=== PATIENT | male | born 1945 | race Caucasian/White ===

== ENCOUNTER 2016-08-10 17:36 | Inpatient (IN) | payer MEDICARE ==
[2016-08-10] MEDS ORDERED: ASPIRIN 81 MG CHEW PO STA (18:12)
--- NOTE | 2016-08-10 18:16 | ED ---
SOB HPI - General Chief Complaint: Shortness of Breath Stated Complaint: fatigue Time Seen by Provider: 08/10/16 18:00 Source: patient, RN notes reviewed Mode of arrival: wheelchair Limitations: no limitations - History of Present Illness Initial Comments: Is a 71-year-old male with a prior history of a three-way coronary artery bypass in 1997 also a stent the same year who states he had an episode about one week ago of some dyspnea on exertion which resolved but then over the past 2 days she's had exertional dyspnea and some mild anterior lower chest pressure when he exerts himself. He has no prior history of COPD or emphysema although he did quit smoking at the age of 35. He currently is asymptomatic. He denies any fevers chills sweats nausea vomiting cough or phlegm production. Patient does work as a car hauler but has not been on any long trips in the past couple months. He denies any calf pain. MD Complaint: shortness of breath, chest pain - Related Data Home Medications Medication Instructions Recorded Confirmed Aspirin 81 mg PO DAILY 03/05/14 08/10/16 Lisinopril-Hctz 20-25 mg 0.5 tab PO DAILY 03/05/14 08/10/16 [Zestoretic 20-25] Metoprolol Tartrate [Lopressor] 50 mg PO DAILY 03/05/14 08/10/16 Multivitamin [Men's Multi-Vitamin] 1 tab PO DAILY 03/05/14 08/10/16 Furosemide [Lasix] 40 mg PO DAILY PRN 03/06/14 08/10/16 Meloxicam [Mobic] 7.5 mg PO DAILY 08/10/16 08/10/16 Simvastatin [Zocor] 20 mg PO DAILY 08/10/16 08/10/16 Previous Rx's Medication Instructions Recorded Clopidogrel [Plavix] 75 mg PO DAILY #90 tab 12/26/15 Allergies Allergy/AdvReac Type Severity Reaction Status Date / Time No Known Allergies Allergy Verified 08/10/16 18:35 Review of Systems ROS Statement: Those systems with pertinent positive or pertinent negative responses have been documented in the HPI. ROS Other: All systems not noted in ROS Statement are negative. 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 History of Any Multi-Drug Resistant Organisms: MRSA Date of last positivie culture/infection: 2011 MDRO Source:: back Past Surgical History: Coronary Bypass/CABG, Heart Catheterization, Heart Catheterization With Stent, Hernia Repair Additional Past Surgical History / Comment(s): 12/25/15 PTCA with stent to OM- 1. Other surgical hx: CABG 1997 triple vessel, cardiac caths, 03/07/14 cardiac cath with stent. colonoscopy, L wrist ganglion cystectomy, umbilical hernia repair. Past Anesthesia/Blood Transfusion Reactions: No Reported Reaction Date of Last Stent Placement:: 12/25/15 Past Psychological History: No Psychological Hx Reported Additional Psychological History / Comment(s): Pt resides with his spouse. 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 He uses no assistive devices. Smoking Status: Former smoker Past Alcohol Use History: None Reported Additional Past Alcohol Use History / Comment(s): STARTED SMOKING AT AGE 17- QUIT IN 1973 SMOKED 1PPD Past Drug Use History: None Reported - Past Family History Father Family Medical History: Cancer Additional Family Medical History / Comment(s): Father of cancer which started in his leg and went to his lungs. He was 82 yrs old. Mother Family Medical History: Musculoskeletal Disorder, Neurologic Disorder Additional Family Medical History / Comment(s): Mother had MS which pt states was cured. She also suffered from migraines. General Exam - General Exam Comments Initial Comments: This is a well-developed well-nourished awake alert oriented x 3 male Limitations: no limitations General appearance: alert, in no apparent distress Head exam: Present: atraumatic, normocephalic, normal inspection Eye exam: Present: normal appearance, PERRL, EOMI. Absent: scleral icterus, conjunctival injection, periorbital swelling ENT exam: Present: normal exam, mucous membranes moist Neck exam: Present: normal inspection. Absent: tenderness, meningismus, lymphadenopathy Respiratory exam: Present: normal lung sounds bilaterally. Absent: respiratory distress, wheezes, rales, rhonchi, stridor Cardiovascular Exam: Present: regular rate, normal rhythm, normal heart sounds. Absent: systolic murmur, diastolic murmur, rubs, gallop, clicks GI/Abdominal exam: Present: soft, normal bowel sounds, other (Obese abdomen). Absent: distended, tenderness, guarding, rebound, rigid Rectal exam: Present: heme (+) stool Extremities exam: Present: normal inspection, full ROM, normal capillary refill , pedal edema (Edema on the left compared to the right some stasis changes noted ). Absent: tenderness, joint swelling, calf tenderness Back exam: Present: normal inspection Neurological exam: Present: alert, oriented X3, CN II-XII intact Psychiatric exam: Present: normal affect, normal mood Skin exam: Present: warm, dry, intact, normal color. Absent: rash Course Vital Signs 08/10/16 08/10/16 08/10/16 18:00 19:08 20:52 Temperature 98.4 F Pulse Rate 71 80 77 Respiratory 20 20 18 Rate Blood Pressure 128/83 131/78 163/76 O2 Sat by Pulse 94 L 96 95 Oximetry - Reevaluation(s) Reevaluation #1: 08/10/16 20:14 Patient does state that he's been having some episodes of bright red blood and dark red blood in the last day or so per rectum. Really no abdominal pain to speak of some vague discomfort on the left side he states. I did perform a rectal exam and did demonstrate burgundy-colored stool no definite hemorrhoidal etiology Medical Decision Making - Medical Decision Making I did discuss findings with patient and with the hospitalist. Visual be admitted with cardiology and GI consultation. Patient currently is asymptomatic. - Lab Data Result diagrams: 08/10/16 18:20 08/10/16 18:20 Lab Results 08/10/16 08/10/16 08/10/16 Range/Units 18:20 18:20 18:20 WBC 9.2 (3.8-10.6) k/uL RBC 5.07 (4.30-5.90) m/uL Hgb 15.0 (13.0-17.5) gm/dL Hct 45.6 (39.0-53.0) % MCV 89.9 (80.0-100.0) fL MCH 29.5 (25.0-35.0) pg MCHC 32.8 (31.0-37.0) g/dL RDW 13.8 (11.5-15.5) % Plt Count 206 (150-450) k/uL Neutrophils % 74 % Lymphocytes % 14 % Monocytes % 6 % Eosinophils % 2 % Basophils % 1 % Neutrophils # 6.8 (1.3-7.7) k/uL Lymphocytes # 1.3 (1.0-4.8) k/uL Monocytes # 0.6 (0-1.0) k/uL Eosinophils # 0.2 (0-0.7) k/uL Basophils # 0.0 (0-0.2) k/uL PT (9.0-12.0) sec INR (<1.1) APTT (22.0-30.0) sec D-Dimer (<0.60) mg/L FEU Sodium 142 (137-145) mmol/L Potassium 4.0 (3.5-5.1) mmol/L Chloride 106 (98-107) mmol/L Carbon Dioxide 24 (22-30) mmol/L Anion Gap 12 mmol/L BUN 22 H (9-20) mg/dL Creatinine 0.90 (0.66-1.25) mg/dL Est GFR (MDRD) Af Amer >60 (>60 ml/min/1.73 sqM) Est GFR (MDRD) Non-Af >60 (>60 ml/min/1.73 sqM) Glucose 132 H (74-99) mg/dL Calcium 9.1 (8.4-10.2) mg/dL Magnesium 2.0 (1.6-2.3) mg/dL Total Bilirubin 0.4 (0.2-1.3) mg/dL AST 30 (17-59) U/L ALT 33 (21-72) U/L Alkaline Phosphatase 90 (38-126) U/L Total Creatine Kinase 174 H (55-170) U/L CK-MB (CK-2) 2.0 (0.0-2.4) ng/mL CK-MB (CK-2) Rel Index 1.1 Troponin I <0.012 (0.000-0.034) ng/mL NT-Pro-B Natriuret Pep pg/mL Total Protein 6.8 (6.3-8.2) g/dL Albumin 3.8 (3.5-5.0) g/dL Stool Occult Blood (Negative) 08/10/16 08/10/16 08/10/16 Range/Units 18:20 18:20 20:12 WBC (3.8-10.6) k/uL RBC (4.30-5.90) m/uL Hgb (13.0-17.5) gm/dL Hct (39.0-53.0) % MCV (80.0-100.0) fL MCH (25.0-35.0) pg MCHC (31.0-37.0) g/dL RDW (11.5-15.5) % Plt Count (150-450) k/uL Neutrophils % % Lymphocytes % % Monocytes % % Eosinophils % % Basophils % % Neutrophils # (1.3-7.7) k/uL Lymphocytes # (1.0-4.8) k/uL Monocytes # (0-1.0) k/uL Eosinophils # (0-0.7) k/uL Basophils # (0-0.2) k/uL PT 10.9 (9.0-12.0) sec INR 1.1 (<1.1) APTT 21.5 L (22.0-30.0) sec D-Dimer 0.53 (<0.60) mg/L FEU Sodium (137-145) mmol/L Potassium (3.5-5.1) mmol/L Chloride (98-107) mmol/L Carbon Dioxide (22-30) mmol/L Anion Gap mmol/L BUN (9-20) mg/dL Creatinine (0.66-1.25) mg/dL Est GFR (MDRD) Af Amer (>60 ml/min/1.73 sqM) Est GFR (MDRD) Non-Af (>60 ml/min/1.73 sqM) Glucose (74-99) mg/dL Calcium (8.4-10.2) mg/dL Magnesium (1.6-2.3) mg/dL Total Bilirubin (0.2-1.3) mg/dL AST (17-59) U/L ALT (21-72) U/L Alkaline Phosphatase (38-126) U/L Total Creatine Kinase (55-170) U/L CK-MB (CK-2) (0.0-2.4) ng/mL CK-MB (CK-2) Rel Index Troponin I (0.000-0.034) ng/mL NT-Pro-B Natriuret Pep 24 pg/mL Total Protein (6.3-8.2) g/dL Albumin (3.5-5.0) g/dL Stool Occult Blood Positive (Negative) - EKG Data -: EKG Interpreted by [facility] EKG shows normal: sinus rhythm (Sinus rhythm with a right bundle-branch block old inferior changes rate was 86. Interval 190 QRS duration 128 daily since QTC of 420/[address]-t wave changes) - Radiology Data Radiology results: report reviewed (Imaging was reviewed no acute findings), image reviewed Disposition Clinical Impression: Angina of effort, GI bleed Disposition: ADMITTED IP TO THIS [facility] Condition: Stable
[2016-08-10 18:37] LABS: Basophils % (A) 1 %; CH 29.4; CHCM 32.9; Eosinophils # (A) 0.2 k/uL (0-0.7); Eosinophils % (A) 2 %; HCT 45.6 % (39.0-53.0); HDW 2.43; Luc # (Auto) 0.27; Luc % (Auto) 3; Lymphocytes # (A) 1.3 k/uL (1.0-4.8); Lymphocytes % (A) 14 %; MCH 29.5 pg (25.0-35.0); MCHC 32.8 g/dL (31.0-37.0); MCV 89.9 fL (80.0-100.0); Mean Platelet Volume 8.1; Monocytes # (A) 0.6 k/uL (0-1.0); Monocytes % (A) 6 %; Neutrophils # (A) 6.8 k/uL (1.3-7.7); Neutrophils % (A) 74 %; RBC 5.07 m/uL (4.30-5.90); RDW 13.8 % (11.5-15.5); WBC 9.2 k/uL (3.8-10.6); WBC (Perox) 9.11
[2016-08-10 18:46] LABS: ALT 33 U/L (21-72); AST 30 U/L (17-59); Alkaline Phosphatase 90 U/L (38-126); Anion Gap 12 mmol/L; Blood Urea Nitrogen 22 mg/dL (9-20); Calcium 9.1 mg/dL (8.4-10.2); Carbon Dioxide 24 mmol/L (22-30); Chloride 106 mmol/L (98-107); Glucose 132 mg/dL (74-99); Non-African American GFR(MDRD) >60 (>60 ml/min/1.73 sqM); Sodium 142 mmol/L (137-145); Total Bilirubin 0.4 mg/dL (0.2-1.3); Total Protein 6.8 g/dL (6.3-8.2)
[2016-08-10 18:59] LABS: Creatine Kinase 174 U/L (55-170)
[2016-08-10 19:11] LABS: INR 1.1 (<1.1); Prothrombin Time 10.9 sec (9.0-12.0); Troponin I <0.012 ng/mL (0.000-0.034)
[2016-08-10 19:26] LABS: Partial Thromboplastin Time 21.5 sec (22.0-30.0)
--- NOTE | 2016-08-10 20:00 | XR ---
EXAMINATION TYPE: XR chest 2V DATE OF EXAM: 08/10/2016 7:18 PM COMPARISON: July 11, 2014 HISTORY: Chest pressure TECHNIQUE: Frontal and lateral views of the chest are obtained. FINDINGS: There are sternal sutures and mediastinal clips and EKG leads. There is no focal air space opacity, pleural effusion, or pneumothorax seen. The cardiac silhouette size is within normal limits. The osseous structures are intact. IMPRESSION: No acute cardiopulmonary process.
[2016-08-10] MEDS ORDERED: NITROGLYCERIN SL TABS 0.4 MG TAB SUBLINGUAL PRN (21:01)
[2016-08-10] MEDS ORDERED: FUROSEMIDE 40 MG TAB PO PRN (21:08)
[2016-08-10] MEDS: SODIUM CHLORIDE 0.9% 1,000 ML IV SCH (21:52)
[2016-08-10] MEDS: NITROGLYCERIN OINT 1 INCH/GM PACKET TOPICAL SCH ×2 (21:57→21:58)
[2016-08-11 01:00] LABS: CHCM 32.7; HCT 42.4 % (39.0-53.0); HDW 2.48; HGB 14.4 gm/dL (13.0-17.5); MCH 30.2 pg (25.0-35.0); MCV 88.9 fL (80.0-100.0); Mean Platelet Volume 8.1; RBC 4.77 m/uL (4.30-5.90); RDW 13.4 % (11.5-15.5); WBC 7.6 k/uL (3.8-10.6)
[2016-08-11 01:20] LABS: Creatine Kinase 152 U/L (55-170)
[2016-08-11 01:33] LABS: Creatine Kinase MB 1.9 ng/mL (0.0-2.4); Troponin I <0.012 ng/mL (0.000-0.034)
[2016-08-11 06:08] LABS: Cholesterol 181 mg/dL (<200); HDL Cholesterol 35 mg/dL (40-60); Triglycerides 153 mg/dL (<150)
[2016-08-11 06:32] LABS: Creatine Kinase 135 U/L (55-170)
[2016-08-11 06:44] LABS: Creatine Kinase MB 1.5 ng/mL (0.0-2.4); Troponin I <0.012 ng/mL (0.000-0.034)
[2016-08-11] MEDS: SODIUM CHLORIDE 0.9% 1,000 ML IV SCH ×3 (07:42→20:27)
[2016-08-11] MEDS ORDERED: ATORVASTATIN 10 MG TAB PO SCH (09:00)
[2016-08-11] MEDS ORDERED: LISINOPRIL-HCTZ 20-25 MG 1 EACH TAB PO SCH (09:00)
[2016-08-11] MEDS: PANTOPRAZOLE 40 MG/10 ML VIAL IVP SCH ×2 (09:09→20:27)
[2016-08-11] MEDS: METOPROLOL TARTRATE 50 MG TAB PO SCH (09:10)
[2016-08-11] MEDS: NITROGLYCERIN OINT 1 INCH/GM PACKET TOPICAL SCH ×3 (13:33→20:31)
--- NOTE | 2016-08-11 13:36 | P.HPIM ---
History of Present Illness H&P Date: 08/11/16 Chief Complaint: Shortness of breath and chest pressure This is a 71-year-old gentleman with the triple-vessel disease thereafter undergoing a PCI to the one in January 2016 comes in to the hospital with complaints of progressive worsening of exertional dyspnea and chest pressure across his midsternal region. Patient denies the pressure being nonradiating it is exacerbated with activity no alleviating factors are reported. Patient states that over the last few days he has noted some dark to bright red blood on having bowel movements. Denies having any recent nausea vomiting or pain relief on defecation. Patient states does state that he has had epigastric pain over the last few days. In the emergency room patient's EKG showed a right bundle branch block with no significant change from appropriate prior EKG. Patient's cardiac enzymes subsequently were negative. However patient had another large bowel movement this a.m. hence was triaged to the stepdown ICU unit. Patient had a large bowel movement this a.m. that was bright red blood. Off note Patient states that he has been lightheaded however no significant dizziness chest pain nausea vomiting urinary urgency or frequency reported at this time. Patient has been on aspirin and Plavix for his recent PCI. Patient's last colonoscopy was 8 years ago was apparently told he has diverticulosis Does not state to take any NSAIDs in addition to the aspirin and Plavix. 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 History of Any Multi-Drug Resistant Organisms: MRSA Date of last positivie culture/infection: 2011 MDRO Source:: back Past Surgical History: Coronary Bypass/CABG, Heart Catheterization, Heart Catheterization With Stent, Hernia Repair Additional Past Surgical History / Comment(s): 12/25/15 PTCA with stent to OM-1 , CABG 1997 triple vessel, cardiac caths, 03/07/14 cardiac cath with stent. colonoscopy, L wrist ganglion cystectomy, umbilical hernia repair. Past Anesthesia/Blood Transfusion Reactions: No Reported Reaction Date of Last Stent Placement:: 12/25/15 Past Psychological History: No Psychological Hx Reported Additional Psychological History / Comment(s): Pt resides with his spouse of 50 yrs. 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 He uses no assistive devices. Smoking Status: Former smoker Past Alcohol Use History: None Reported Additional Past Alcohol Use History / Comment(s): STARTED SMOKING AT AGE 17- QUIT IN 1974 SMOKED 1PPD Past Drug Use History: None Reported - Past Family History Father Family Medical History: Cancer Additional Family Medical History / Comment(s): Father of cancer which started in his leg and went to his lungs. He was 82 yrs old. Mother Family Medical History: Musculoskeletal Disorder, Neurologic Disorder Additional Family Medical History / Comment(s): Mother had MS which pt states was cured. She also suffered from migraines. Medications and Allergies Home Medications Medication Instructions Recorded Confirmed Type Aspirin 81 mg PO DAILY 03/05/14 08/10/16 History Lisinopril-Hctz 20-25 mg 0.5 tab PO DAILY 03/05/14 08/10/16 History [Zestoretic 20-25] Metoprolol Tartrate [Lopressor] 50 mg PO DAILY 03/05/14 08/10/16 History Multivitamin [Men's Multi-Vitamin] 1 tab PO DAILY 03/05/14 08/10/16 History Furosemide [Lasix] 40 mg PO DAILY PRN 03/06/14 08/10/16 History Meloxicam [Mobic] 7.5 mg PO DAILY 08/10/16 08/10/16 History Simvastatin [Zocor] 20 mg PO DAILY 08/10/16 08/10/16 History Allergies Allergy/AdvReac Type Severity Reaction Status Date / Time No Known Allergies Allergy Verified 08/10/16 18:35 Physical Exam Vitals: Vital Signs Temp Pulse Pulse Resp BP BP Pulse Ox 08/11/16 13:17 97.0 F L 50 L 18 115/77 95 08/11/16 12:46 96 F L 60 20 127/74 96 08/11/16 11:41 97.9 F 68 16 120/59 96 08/11/16 09:47 16 08/11/16 09:38 66 16 148/78 08/10/16 21:54 96.8 F L 70 18 138/81 97 Physical exam Gen. appearance oriented 3 in no distress Neck is supple no JVD Lungs good air entry clear to auscultation no rhonchi or wheezing Heart S1-S2 heard regular rate and rhythm no murmurs appreciated Abdomen some epigastric pain appreciated bowel sounds are intact no organomegaly Neurologically cranial nerves II-12 grossly intact no focal motor or sensory deficits noted Skin no abnormalities appreciated Results CBC & Chem 7: 08/11/16 00:42 08/10/16 18:20 Labs: Abnormal Lab Results - Last 24 Hours (Table) 08/11/16 Range/Units 05:20 Triglycerides 153 H (<150) mg/dL LDL Cholesterol, Calc 115 H (0-99) mg/dL HDL Cholesterol 35 L (40-60) mg/dL Thrombosis Risk Factor Assmnt - Choose All That Apply Any of the Below Risk Factors Present?: Yes Each Factor Represents 1 point: Obesity (BMI >25) Other Risk Factors: Yes Each Risk Factor Represents 2 Points: Age 61-74 years Other congenital or acquired thrombophilia - If yes, enter type in comment: No Thrombosis Risk Factor Assessment Total Risk Factor Score: 3 Thrombosis Risk Factor Assessment Level: Moderate Risk Assessment and Plan Plan: Atypical chest pain ACS is ruled out #2 GI bleed appears to be acute in nature and upper in a patient was taken dual antiplatelet therapy #3 CAD with a recent PCI to the OM-1 in a patient with triple-vessel bypass #4 history of hypertension #5 dyslipidemia #6 obesity #7 remote history of tobacco use Plan Cardiology consultation is obtained. Patient's antiplatelet agents are held at this time Repeat hemoglobin every 6 hours Patient does not appear to have any active chest pain. Echocardiogram is done will review results A GI consultation will be obtained patient would benefit from a panendoscopy to rule out active signs of bleeding patient will likely need to be on dual antiplatelet therapy for at least another 6 months once the risk factors are delineated. Continue ongoing care. Continue telemetry monitoring EKG was reviewed.
[2016-08-11 16:36] LABS: Glucose,Whole Blood 88 mg/dL (75-99)
[2016-08-11 20:17] LABS: Basophils # (A) 0.1 k/uL (0-0.2); Basophils % (A) 1 %; CH 28.7; CHCM 32.1; Eosinophils # (A) 0.2 k/uL (0-0.7); Eosinophils % (A) 2 %; HDW 2.49; HGB 13.8 gm/dL (13.0-17.5); Luc % (Auto) 4; Lymphocytes # (A) 1.2 k/uL (1.0-4.8); Lymphocytes % (A) 14 %; MCH 29.6 pg (25.0-35.0); MCHC 32.9 g/dL (31.0-37.0); MCV 89.9 fL (80.0-100.0); Mean Platelet Volume 7.8; Monocytes # (A) 0.5 k/uL (0-1.0); Monocytes % (A) 6 %; Neutrophils % (A) 73 %; RBC 4.67 m/uL (4.30-5.90); RDW 13.4 % (11.5-15.5); WBC 8.2 k/uL (3.8-10.6); WBC (Perox) 8.34
[2016-08-11 20:57] LABS: Glucose,Whole Blood 118 mg/dL (75-99)
[2016-08-12] MEDS: NITROGLYCERIN OINT 1 INCH/GM PACKET TOPICAL SCH ×5 (03:06→21:29)
[2016-08-12] MEDS: SODIUM CHLORIDE 0.9% 1,000 ML IV SCH ×3 (04:01→11:40)
[2016-08-12 04:05] LABS: Basophils # (A) 0.1 k/uL (0-0.2); Basophils % (A) 1 %; CH 29.5; CHCM 32.3; Eosinophils # (A) 0.2 k/uL (0-0.7); Eosinophils % (A) 3 %; HDW 2.42; HGB 13.2 gm/dL (13.0-17.5); Luc # (Auto) 0.28; Luc % (Auto) 4; Lymphocytes # (A) 1.3 k/uL (1.0-4.8); Lymphocytes % (A) 15 %; MCH 29.5 pg (25.0-35.0); MCHC 32.2 g/dL (31.0-37.0); MCV 91.6 fL (80.0-100.0); Mean Platelet Volume 8.3; Monocytes # (A) 0.4 k/uL (0-1.0); Monocytes % (A) 5 %; Neutrophils # (A) 5.9 k/uL (1.3-7.7); Neutrophils % (A) 73 %; RBC 4.48 m/uL (4.30-5.90); RDW 13.8 % (11.5-15.5); WBC 8.2 k/uL (3.8-10.6); WBC (Perox) 8.45
[2016-08-12 04:26] LABS: ALT 36 U/L (21-72); AST 24 U/L (17-59); Alkaline Phosphatase 74 U/L (38-126); Anion Gap 8 mmol/L; Blood Urea Nitrogen 15 mg/dL (9-20); Calcium 8.3 mg/dL (8.4-10.2); Carbon Dioxide 25 mmol/L (22-30); Chloride 108 mmol/L (98-107); Glucose 98 mg/dL (74-99); Non-African American GFR(MDRD) >60 (>60 ml/min/1.73 sqM); Potassium 3.9 mmol/L (3.5-5.1); Sodium 141 mmol/L (137-145); Total Bilirubin 0.6 mg/dL (0.2-1.3); Total Protein 5.7 g/dL (6.3-8.2)
[2016-08-12 05:41] LABS: Glucose,Whole Blood 113 mg/dL (75-99)
--- NOTE | 2016-08-12 08:30 | CONS ---
DATE OF CONSULTATION: Bharat Roldan is a 71-year-old gentleman who sees Dr. Dunaway in the outpatient setting. He has history of CAD, hypertension, hyperlipidemia, and in November he underwent stenting of an obtuse marginal branch of circumflex. He has a prior history of aortocoronary bypass surgery that was performed in the past with KAUR to LAD and a vein graft to the obtuse marginal and also diagonal branch. Diagonal branch was highly diseased and vein graft to the obtuse marginal was known to be occluded. ( ) performed stenting of the [place] obtuse marginal which was the first obtuse marginal with a drug-eluting stent. Patient is fairly active. He has had injury as a child and he is blind in his left eye. He is a reasonably active person. He came in because about 4 days ago he had some pressure across the chest while he was doing some yard work. He felt concerned and came in, but 2 days prior to that, he has been noticing some blood in his stool. After arrival to the hospital, he has had matthew middle and colored blood in the stool with a large bowel movement with clots. He dropped his hemoglobin nearly 1.8 grams. He is hemodynamically stable, resting comfortably. Appropriately, his aspirin and Plavix were both held. He is hemodynamically stable, resting comfortably. Denies any chest pain at the time of my evaluation. PAST MEDICAL HISTORY: 1. CAD with prior bypass surgery and PCI in December 2015 more than 6 months ago. 2. Hypertension. 3. Hyperlipidemia. 4. Obstructive sleep apnea syndrome, wears a BiPAP. 5. Patient is legally blind on his left eye. 6. He is status post hernia repair and bypass surgery in the past. Also has had some umbilical hernia repair as well. ALLERGIES: NONE. Medications at home included aspirin 81 mg daily, Plavix 75 mg daily, simvastatin 20 mg daily, lisinopril hydrochlorothiazide 20/25 one tablet daily, Lopressor 50 mg daily, Lasix 40 mg daily which he was taking on a p.r.n. basis. On examination, blood pressure is 118/70, pulse rate is 68 per minute, regular. HEENT: Unremarkable. Fundus was not examined by me. Neck is supple. There is no evidence of any significant JVD. Heart exam reveals S1 and S2 heard normally. No significant murmurs are audible. Lungs reveal diminished air entry. Abdomen is soft. There is no tenderness. Lower extremities reveal diminished pulses with evidence of some pigmentations. There is trace edema bilaterally. Central nervous system grossly no focal deficits. EKG revealed sinus mechanism with evidence of right bundle branch block pattern and repolarization abnormality, evidence of old inferior MA. LABORATORY DATA: Suggests that there is no elevation of troponin. IMPRESSION: 1. Chest pain syndrome, cannot exclude angina without evidence of any myocardial injury. 2. Gastrointestinal bleeding, lower gastrointestinal with bloody stool and drop in hemoglobin of 1.8 grams. 3. Hypertension. 4. Hyperlipidemia. 5. History of prior bypass surgery and PCI of circumflex performed in December 2015. RECOMMENDATIONS: I agree with stopping both aspirin and Plavix under the current circumstances. I explained this to the patient. However, I am concerned about his episode of chest pain. Fortunately the chest pain has not recurred. He has no troponin elevation. We will treat him medically in this regard and he will benefit from a full upper and lower endoscopy. I am recommending that we continue his beta jusuts in the form of metoprolol tartrate. Will also place him on nitro paste for now and Imdur eventually and increase the atorvastatin to 40 mg daily. He has no angina and based on clinical course, I will make further recommendations. We will await input from GI and possible endoscopy. Thank you very much for the consult.
[2016-08-12] MEDS: PANTOPRAZOLE 40 MG/10 ML VIAL IVP SCH ×2 (09:55→21:12)
[2016-08-12] MEDS: ATORVASTATIN 40 MG TAB PO SCH (09:55)
[2016-08-12] MEDS: METOPROLOL TARTRATE 50 MG TAB PO SCH (09:55)
[2016-08-12 10:59] LABS: CH 29.3; CHCM 32.2; HCT 40.5 % (39.0-53.0); HDW 2.44; MCH 29.3 pg (25.0-35.0); MCHC 32.1 g/dL (31.0-37.0); MCV 91.5 fL (80.0-100.0); Mean Platelet Volume 8.1; RBC 4.42 m/uL (4.30-5.90); RDW 13.6 % (11.5-15.5); WBC 6.3 k/uL (3.8-10.6)
[2016-08-12 11:42] LABS: Glucose,Whole Blood 104 mg/dL (75-99)
[2016-08-12 16:21] LABS: CH 29.6; CHCM 33.1; HCT 39.1 % (39.0-53.0); HDW 2.55; HGB 13.2 gm/dL (13.0-17.5); MCH 30.3 pg (25.0-35.0); MCHC 33.8 g/dL (31.0-37.0); MCV 89.7 fL (80.0-100.0); Mean Platelet Volume 8.2; RBC 4.35 m/uL (4.30-5.90); RDW 13.3 % (11.5-15.5); WBC 7.4 k/uL (3.8-10.6)
--- NOTE | 2016-08-12 16:35 | P.PN ---
Subjective This is a 71-year-old gentleman with the triple-vessel disease thereafter undergoing a PCI to the one in January 2016 comes in to the hospital with complaints of progressive worsening of exertional dyspnea and chest pressure across his midsternal region. Patient denies the pressure being nonradiating it is exacerbated with activity no alleviating factors are reported. Patient states that over the last few days he has noted some dark to bright red blood on having bowel movements. Denies having any recent nausea vomiting or pain relief on defecation. Patient states does state that he has had epigastric pain over the last few days. In the emergency room patient's EKG showed a right bundle branch block with no significant change from appropriate prior EKG. Patient's cardiac enzymes subsequently were negative. However patient had another large bowel movement this a.m. hence was triaged to the stepdown ICU unit. Patient had a large bowel movement this a.m. that was bright red blood. Off note Patient states that he has been lightheaded however no significant dizziness chest pain nausea vomiting urinary urgency or frequency reported at this time. Patient has been on aspirin and Plavix for his recent PCI. Patient's last colonoscopy was 8 years ago was apparently told he has diverticulosis has been taking meloxicam for the last 3-4 weeks in addition to the aspirin and Plavix. 08/12/2016 States to be doing well. Has had one bowel movement with minimal blood in it or graft no fevers chills nausea vomiting diarrhea reported at this time. Objective - Vital Signs Vital signs: Vital Signs Temp 96.8 F L 08/12/16 16:02 Pulse 65 08/12/16 16:02 Resp 21 08/12/16 16:02 BP 149/70 08/12/16 16:02 Pulse Ox 97 08/12/16 16:02 Intake & Output 08/11/16 08/12/16 08/12/16 18:59 06:59 18:59 Intake Total 1850 200 Balance 1850 200 Weight 102.058 kg 124.1 kg Intake: IV 1250 200 Sodium Chloride 0.9% 1, 1250 200 000 ml @ 50 mls/hr IV . Q20H ALLEN Rx#:[id number] Oral 600 Other: Voiding Method Toilet Toilet # Voids 2 # Bowel Movements 2 1 - Exam Physical exam Gen. appearance oriented 3 in no distress Neck is supple no JVD Lungs good air entry clear to auscultation no rhonchi or wheezing Heart S1-S2 heard regular rate and rhythm no murmurs appreciated Abdomen is soft nontender no organomegaly bowel sounds are intact Neurologically cranial nerves II-12 grossly intact no focal motor or sensory deficits noted Skin no abnormalities appreciated - Labs CBC & Chem 7: 08/12/16 15:44 08/12/16 03:47 Labs: Abnormal Lab Results - Last 24 Hours (Table) 08/11/16 08/12/16 08/12/16 Range/Units 20:55 03:47 05:40 Chloride 108 H (98-107) mmol/L POC Glucose (mg/dL) 118 H 113 H (75-99) mg/dL Calcium 8.3 L (8.4-10.2) mg/dL Total Protein 5.7 L (6.3-8.2) g/dL Albumin 3.1 L (3.5-5.0) g/dL 08/12/16 Range/Units 11:40 Chloride (98-107) mmol/L POC Glucose (mg/dL) 104 H (75-99) mg/dL Calcium (8.4-10.2) mg/dL Total Protein (6.3-8.2) g/dL Albumin (3.5-5.0) g/dL Assessment and Plan Plan: Atypical chest pain ACS is ruled out #2 GI bleed appears to be acute in nature and upper in a patient was taken dual antiplatelet therapy #3 CAD with a recent PCI to the OM-1 in a patient with triple-vessel bypass #4 history of hypertension #5 dyslipidemia #6 obesity #7 remote history of tobacco use Plan currently hold off on mobic, dual antiplatelet therapy as recommended by cardiology. Patient is to undergo a panendoscopy likely with the GI. Hemoglobin is stable Repeat hemoglobin will await recommendations from the type inspector after the endoscopy.
[2016-08-12 16:52] LABS: Glucose,Whole Blood 124 mg/dL (75-99)
[2016-08-12] MEDS ORDERED: PEG 3350-NA SULF,BICARB,CL/KCL 4,000 ML BOTTLE PO ONE (17:00)
--- NOTE | 2016-08-12 17:31 | CONS ---
DATE OF CONSULTATION: 08/12/2016 REASON FOR CONSULTATION: Acute GI bleed. HISTORY OF PRESENT ILLNESS: The patient is a 71-year-old pleasant white male who was admitted to the hospital with chest pain and shortness of breath. While in the emergency room he was complaining of black tarry stools for the last 2 to 3 days' duration. The patient says that he had a similar episode about 6 months ago and another episode 2 years ago but never mentioned it to his physician; however, while in the ER he apparently did have a large amount of black tarry stool followed by maroon-colored stool, and he had about 2 of these episodes yesterday also. Hence we are consulted for further evaluation. The patient on further questioning states that he has been having some epigastric right upper quadrant abdominal pain for the last 2 or 3 days' duration. He denies any heartburn, reports no dysphagia or odynophagia. He has a history of peptic ulcer disease about 40 years ago. His last colonoscopy was close to 7 or 8 years ago, and according to the patient it was within normal limits. This morning he had 2 episodes of black tarry stools, also. He has been taking meloxicam for the last 4 months' duration for degenerative joint disease. Past medical history is significant for: 1. Coronary artery disease, status post stent placement a year ago, on aspirin and Plavix. 2. History of hypertension. 3. Hypercholesterolemia. 4. Degenerative joint disease. MEDICATIONS AT HOME: 1. Zocor. 2. Multivitamin. 3. Lopressor. 4. Mobic. 5. Zestoretic. 6. Lasix. 7. Plavix. 8. Aspirin. PAST SURGICAL HISTORY: 1. CABG. 2. Cardiac catheterization with stent placements. 3. Umbilical hernia repair. 4. Ganglion cyst removal. SOCIAL HISTORY: Remote history of smoking. No alcohol use. FAMILY HISTORY: Father had some kind of cancer that spread to the lungs. Mother had colon cancer. REVIEW OF SYSTEMS: CARDIOPULMONARY: He denies any chest pain or shortness of breath. GENITOURINARY: No dysuria or hematuria. MUSCULOSKELETAL: Unremarkable. SKIN: Unremarkable. ENDOCRINE: Unremarkable. PSYCHIATRIC: Unremarkable. NEUROLOGY: Unremarkable. ENT/VISION: Unremarkable. CONSTITUTIONAL: No recent weight loss. No fever, chills or night sweats. On physical examination, he appears comfortable; no apparent distress. Vital signs are stable. Blood pressure is 130/86, pulse rate 67, temperature 96.4. HEENT EXAMINATION: Unremarkable. Conjunctivae pink. Sclerae anicteric. Oral cavity has no lesions. NECK: No JVD or lymph node enlargement. Chest was clear to auscultation. HEART: Regular rate and rhythm. ABDOMEN: Soft. Bowel sounds are positive. No organomegaly. Mild tenderness in the epigastric area. EXTREMITIES: No pedal edema. SKIN: No rashes. NEURO: Alert and oriented x3. No focal deficits. LABS DONE AT THE TIME OF ADMISSION TO THE HOSPITAL: Hemoglobin 13.2. Today it is 13.3. BUN and creatinine were 22 and 0.9, respectively. Rest of the labs are within normal limits. IMPRESSION: 1. Acute gastrointestinal bleed for the last 3 days' duration. Patient has been having intermittent black tarry stools and occasional maroon-colored stools for the last 3 days; however, his hemoglobin remains stable at 13.2 g/dL. He had a similar episode about 6 months ago and about 2 years ago, at which times no obvious workup was done, as patient never complained to his physician. At present he is hemodynamically stable, with some drop in his hemoglobin so far. He has been on meloxicam for the last 4 months, and hence possibility of peptic ulcer disease needs to be considered. Last colonoscopy, as mentioned above, was approximately 8 years ago and was normal. 2. History of coronary artery disease/stent placement, on aspirin and Plavix, at present on hold. RECOMMENDATIONS: At this time we will proceed with an EGD and a colonoscopy. I discussed with the patient risks, benefits and complications of the procedure, and he is agreeable to it. In the meantime, continue to hold the aspirin and Plavix, and we will follow the patient closely during his hospital stay. Thank you for this consultation.
[2016-08-12 21:05] LABS: Glucose,Whole Blood 82 mg/dL (75-99)
[2016-08-12 21:46] LABS: CH 29.5; CHCM 32.5; HCT 43.5 % (39.0-53.0); HDW 2.43; MCH 29.4 pg (25.0-35.0); MCHC 32.2 g/dL (31.0-37.0); MCV 91.1 fL (80.0-100.0); Mean Platelet Volume 8.2; RBC 4.78 m/uL (4.30-5.90); RDW 13.7 % (11.5-15.5); WBC 8.1 k/uL (3.8-10.6)
[2016-08-13 04:56] LABS: ALT 36 U/L (21-72); AST 27 U/L (17-59); Alkaline Phosphatase 89 U/L (38-126); Anion Gap 12 mmol/L; Blood Urea Nitrogen 11 mg/dL (9-20); Calcium 9.1 mg/dL (8.4-10.2); Carbon Dioxide 26 mmol/L (22-30); Chloride 105 mmol/L (98-107); Glucose 102 mg/dL (74-99); Non-African American GFR(MDRD) >60 (>60 ml/min/1.73 sqM); Potassium 4.1 mmol/L (3.5-5.1); Sodium 143 mmol/L (137-145); Total Bilirubin 0.7 mg/dL (0.2-1.3); Total Protein 6.7 g/dL (6.3-8.2)
[2016-08-13 05:02] LABS: Basophils % (A) 1 %; CH 29.7; CHCM 33.5; Eosinophils # (A) 0.2 k/uL (0-0.7); Eosinophils % (A) 2 %; HCT 42.4 % (39.0-53.0); HDW 2.53; HGB 14.1 gm/dL (13.0-17.5); Luc # (Auto) 0.33; Luc % (Auto) 4; Lymphocytes # (A) 1.3 k/uL (1.0-4.8); Lymphocytes % (A) 15 %; MCH 29.6 pg (25.0-35.0); MCHC 33.3 g/dL (31.0-37.0); MCV 88.9 fL (80.0-100.0); Monocytes # (A) 0.6 k/uL (0-1.0); Monocytes % (A) 7 %; Neutrophils # (A) 5.9 k/uL (1.3-7.7); Neutrophils % (A) 71 %; RBC 4.77 m/uL (4.30-5.90); RDW 13.3 % (11.5-15.5); WBC 8.3 k/uL (3.8-10.6); WBC (Perox) 8.95
[2016-08-13 06:15] LABS: Glucose,Whole Blood 99 mg/dL (75-99)
[2016-08-13] MEDS: METOPROLOL TARTRATE 50 MG TAB PO SCH (08:31)
[2016-08-13] MEDS: PANTOPRAZOLE 40 MG/10 ML VIAL IVP SCH ×2 (08:31→20:58)
[2016-08-13] MEDS: ATORVASTATIN 40 MG TAB PO SCH (08:31)
[2016-08-13] MEDS: SODIUM CHLORIDE 0.9% 1,000 ML IV SCH (08:32)
[2016-08-13 09:27] LABS: Basophils # (A) 0.1 k/uL (0-0.2); Basophils % (A) 1 %; CH 29.4; CHCM 32.9; Eosinophils # (A) 0.2 k/uL (0-0.7); Eosinophils % (A) 3 %; HCT 38.7 % (39.0-53.0); HDW 2.44; HGB 12.7 gm/dL (13.0-17.5); Luc # (Auto) 0.26; Luc % (Auto) 4; Lymphocytes % (A) 17 %; MCH 29.5 pg (25.0-35.0); MCHC 32.8 g/dL (31.0-37.0); MCV 89.9 fL (80.0-100.0); Mean Platelet Volume 8.1; Monocytes # (A) 0.4 k/uL (0-1.0); Monocytes % (A) 6 %; Neutrophils # (A) 4.3 k/uL (1.3-7.7); Neutrophils % (A) 70 %; RBC 4.31 m/uL (4.30-5.90); RDW 13.7 % (11.5-15.5); WBC 6.1 k/uL (3.8-10.6); WBC (Perox) 6.37
--- NOTE | 2016-08-13 10:06 | ECHOF ---
Referral Reason:Atypical chest pain, in a.m. MEASUREMENTS -------- HEIGHT: 170.2 cm WEIGHT: 102.1 kg BP: 138/81 IVSd: 1.9 cm (0.6 - 1.1) LVIDd: 3.0 cm (3.9 - 5.3) LVPWd: 2.1 cm (0.6 - 1.1) IVSs: 2.2 cm LVIDs: 2.0 cm LVPWs: 2.3 cm Ao Diam: 3.9 cm (2.0 - 3.7) AV Cusp: 3.0 cm (1.5 - 2.6) LA Diam: 3.9 cm (2.7 - 3.8) MV EXCURSION: 21.388 mm (> 18.000) MV EF SLOPE: 80 mm/s (70 - 150) EPSS: 1.9 cm MV E Sai: 0.69 m/s MV DecT: 181 ms MV A Sai: 0.80 m/s MV E/A Ratio: 0.87 RAP: 5.00 mmHg RVSP: 7.97 mmHg FINDINGS -------- Sinus rhythm. This was a technically difficult study with suboptimal views. There is severe concentric left ventricular hypertrophy. Overall left ventricular systolic function is normal with, an EF between 55 - 60 %. The right ventricle is normal in size and function. The left atrium is normal in size. The right atrium is normal in size. 1.5mg of Definity was utilized for enhancement of images The aortic valve is trileaflet, and appears structurally normal. No aortic stenosis or regurgitation. The mitral valve leaflets are mildly thickened. There is trace mitral regurgitation. Trace tricuspid regurgitation present. The right ventricular systolic pressure, as measured by Doppler, is 7.97mmHg. Pulmonic valve appears structurally normal. The aortic root size is normal. The pericardium is normal. CONCLUSIONS -------- 1. Sinus rhythm. 2. The mitral valve leaflets are mildly thickened. 3. There is trace mitral regurgitation. 4. Trace tricuspid regurgitation present. 5. The right ventricular systolic pressure, as measured by Doppler, is 7.97mmHg. 6. Pulmonic valve appears structurally normal. 7. The aortic root size is normal. 8. The pericardium is normal. 9. This was a technically difficult study with suboptimal views. 10. There is severe concentric left ventricular hypertrophy. 11. Overall left ventricular systolic function is normal with, an EF between 55 - 60 %. 12. The right ventricle is normal in size and function. 13. The left atrium is normal in size. 14. The right atrium is normal in size. 15. 1.5mg of Definity was utilized for enhancement of images 16. The aortic valve is trileaflet, and appears structurally normal. No aortic stenosis or regurgitation. AUTOMOTIVE DISMANTLER: Milagros Adam RDCS
[2016-08-13 11:38] LABS: Glucose,Whole Blood 99 mg/dL (75-99)
[2016-08-13] MEDS: NITROGLYCERIN OINT 1 INCH/GM PACKET TOPICAL SCH ×3 (11:41→23:48)
[2016-08-13] MEDS ORDERED: GLYCOPYRROLATE 0.2 MG/ML 2 ML VIAL ONE (13:03)
[2016-08-13] MEDS ORDERED: LIDOCAINE 1% INJ 10MG/ML (20 ML MDV) ONE (13:03)
[2016-08-13] MEDS ORDERED: KETAMINE 10 MG/ML 20 ML VIAL ONE (13:03)
[2016-08-13] MEDS ORDERED: PROPOFOL 10 MG/ML 20 ML VIAL IV ONE (13:03)
[2016-08-13] MEDS ORDERED: IV FLUID CONTINUATION 800 ML IV ONE (13:05)
--- NOTE | 2016-08-13 13:34 | P.PCN ---
Date of Procedure: 08/13/16 Procedure(s) Performed: Brief history: Patient is a pleasant 71-year-old white male, scheduled for an elective upper endoscopy as well as colonoscopy as a part of evaluation of acute GI bleed. He presents to the hospital with chest pain and subsequently was complaining of dark stools for the last 3-4 days duration. He has similar episode about 7 months ago and also 2 years ago that lasted for 2 or 3 days and subsided. Last hemoglobin is 12.8 g/dL. Procedure performed: Esophagogastroduodenoscopy with biopsy Colonoscopy Preoperative diagnosis: Acute GI bleed Anesthesia: [facility] Procedure: After informed consent was obtained from the patient was brought into the endoscopy unit and IV sedation was administered by anesthesia under continuous monitoring. Initially upper endoscopy was done. The Olympus GF 160 video endoscope was inserted inserted into the mouth and esophagus intubated without any difficulty and was gradually advanced into the stomach and duodenum and carefully examined. The bulb and second part of the duodenum appeared normal. The scope was then withdrawn into the stomach adequately insufflated with air and upon careful examination the antrum had multiple scattered erosions and biopsies were done from this area. The body, cardia and fundus appeared normal. The scope was then withdrawn into the esophagus. The GE junction was located at 40 cm to the incisors. It appeared regular with no erythema erosions or ulcerations. Rest of the esophagus appeared normal. Patient tolerated the procedure well. At this time the patient continued to remain sedation. Initial digital rectal examination was normal. Olympus CF 160 video colonoscope was then inserted into the rectum and gradually advanced to the cecum without any difficulty. Careful examination was performed as the scope was gradually being withdrawn. The prep was fair. There was old blood noted throughout the entire colon with irrigation was performed. The terminal ileum was intubated and there was a small scope visually erosion in the terminal ileum which was biopsied. However there was some brown liquid stool noted in this area. In the cecum there were 3 superficial erosions identified but no active bleeding and this was biopsied. The cecum, ascending colon, transverse colon, descending colon, sigmoid colon and rectum appeared normal. There were diffuse diverticulosis noted throughout the entire colon more predominant in the left colon which appears to be the source of bleeding. Retroflexion was performed in the rectum and grade 2 internal hemorrhoids were noted. Patient tolerated the procedure well. Impression: 1. Upper endoscopy to be revealed antral erosive gastritis but no evidence of esophagitis or peptic ulcer disease 2. Colonoscopy revealed few scattered erosions in the cecum and terminal ileum but no active bleeding. There was diffuse diverticulosis noted throughout the entire colon which is the most likely source of bleeding but no active bleeding at the time of examination, though there was some old blood noted throughout the entire colon. Small internal hemorrhoids seen Recommendations: Findings of this examination were discussed with the patient as well as his family. He will be started on clear liquid diet and repeat CBC tomorrow morning. Continue to hold aspirin and Plavix for now.
[2016-08-13 14:19] VITALS: BMI 42.0
--- NOTE | 2016-08-13 15:24 | PN ---
Mr. Roldan is doing better. He has no chest pain. He is comfortable, resting. He is going for an upper and lower endoscopy. Vital signs are stable. No JVD or carotid bruit. S1, S2 heard normally. Heart sounds heard distantly. Lungs are clear. Abdomen and lower extremity exam unchanged. We will hold aspirin and Plavix for now, offer endoscopy, decide on reintroducing aspirin. Discussed this with the patient and family.
[2016-08-13 15:33] LABS: Basophils % (A) 0 %; CH 29.7; CHCM 32.6; Eosinophils # (A) 0.2 k/uL (0-0.7); Eosinophils % (A) 2 %; HDW 2.43; HGB 12.8 gm/dL (13.0-17.5); Luc # (Auto) 0.23; Luc % (Auto) 3; Lymphocytes # (A) 0.9 k/uL (1.0-4.8); Lymphocytes % (A) 13 %; MCH 29.4 pg (25.0-35.0); MCHC 32.1 g/dL (31.0-37.0); MCV 91.5 fL (80.0-100.0); Monocytes # (A) 0.4 k/uL (0-1.0); Monocytes % (A) 6 %; Neutrophils # (A) 5.3 k/uL (1.3-7.7); Neutrophils % (A) 75 %; RBC 4.37 m/uL (4.30-5.90); RDW 13.7 % (11.5-15.5); WBC 7.1 k/uL (3.8-10.6)
[2016-08-13 16:26] LABS: Glucose,Whole Blood 89 mg/dL (75-99)
--- NOTE | 2016-08-13 17:49 | P.PN ---
Subjective This is a 71-year-old gentleman with the triple-vessel disease thereafter undergoing a PCI to the one in January 2016 comes in to the hospital with complaints of progressive worsening of exertional dyspnea and chest pressure across his midsternal region. Patient denies the pressure being nonradiating it is exacerbated with activity no alleviating factors are reported. Patient states that over the last few days he has noted some dark to bright red blood on having bowel movements. Denies having any recent nausea vomiting or pain relief on defecation. Patient states does state that he has had epigastric pain over the last few days. In the emergency room patient's EKG showed a right bundle branch block with no significant change from appropriate prior EKG. Patient's cardiac enzymes subsequently were negative. However patient had another large bowel movement this a.m. hence was triaged to the stepdown ICU unit. Patient had a large bowel movement this a.m. that was bright red blood. Off note Patient states that he has been lightheaded however no significant dizziness chest pain nausea vomiting urinary urgency or frequency reported at this time. Patient has been on aspirin and Plavix for his recent PCI. Patient's last colonoscopy was 8 years ago was apparently told he has diverticulosis has been taking meloxicam for the last 3-4 weeks in addition to the aspirin and Plavix. 08/12/2016 States to be doing well. Has had one bowel movement with minimal blood in it or graft no fevers chills nausea vomiting diarrhea reported at this time. 08/13/16 Doing well no new overnight events Objective - Vital Signs Vital signs: Vital Signs Temp 98.0 F 08/13/16 16:00 Pulse 50 L 08/13/16 16:00 Resp 16 08/13/16 16:00 BP 144/70 08/13/16 16:00 Pulse Ox 97 08/13/16 16:00 Intake & Output 08/12/16 08/13/16 08/13/16 18:59 06:59 18:59 Intake Total 200 500 300 Output Total 200 Balance 200 500 100 Weight 123.4 kg 121.7 kg Intake: IV 200 500 300 Sodium Chloride 0.9% 1, 200 500 000 ml @ 50 mls/hr IV . Q20H ALLEN Rx#:[id number] Oral 0 Output: Urine 200 Other: Voiding Method Toilet Toilet # Voids 1 - Exam Physical exam Gen. appearance oriented 3 in no distress Neck is supple no JVD Lungs good air entry clear to auscultation no rhonchi or wheezing Heart S1-S2 heard regular rate and rhythm no murmurs appreciated Abdomen is soft nontender no organomegaly bowel sounds are intact Neurologically cranial nerves II-12 grossly intact no focal motor or sensory deficits noted Skin no abnormalities appreciated - Labs CBC & Chem 7: 08/13/16 15:21 08/13/16 03:10 Labs: Abnormal Lab Results - Last 24 Hours (Table) 08/13/16 08/13/16 08/13/16 Range/Units 03:10 08:48 15:21 Hgb 12.7 L 12.8 L (13.0-17.5) gm/dL Hct 38.7 L (39.0-53.0) % Lymphocytes # 0.9 L (1.0-4.8) k/uL Glucose 102 H (74-99) mg/dL Assessment and Plan Plan: Atypical chest pain ACS is ruled out #2 GI bleed with acute blood loss, stable sec to antral gastritis #3 CAD with a recent PCI to the OM-1 in a patient with triple-vessel bypass #4 history of hypertension #5 dyslipidemia #6 obesity #7 remote history of tobacco use Plan currently hold off on mobic, dual antiplatelet therapy as recommended by cardiology. Hemoglobin is stable will likely dc home in the next 24 hrs. Repeat hemoglobin
[2016-08-13 20:50] LABS: Glucose,Whole Blood 94 mg/dL (75-99)
[2016-08-14] MEDS: NITROGLYCERIN OINT 1 INCH/GM PACKET TOPICAL SCH ×4 (05:46→22:19)
[2016-08-14] MEDS: SODIUM CHLORIDE 0.9% 1,000 ML IV SCH (05:47)
[2016-08-14 06:29] LABS: Glucose,Whole Blood 106 mg/dL (75-99)
[2016-08-14 06:42] LABS: Basophils % (A) 1 %; CH 29.9; Eosinophils # (A) 0.2 k/uL (0-0.7); Eosinophils % (A) 3 %; HCT 37.8 % (39.0-53.0); HDW 2.44; Luc # (Auto) 0.23; Luc % (Auto) 3; Lymphocytes % (A) 15 %; MCHC 31.9 g/dL (31.0-37.0); MCV 90.9 fL (80.0-100.0); Mean Platelet Volume 8.2; Monocytes # (A) 0.4 k/uL (0-1.0); Monocytes % (A) 6 %; Neutrophils # (A) 5.1 k/uL (1.3-7.7); Neutrophils % (A) 73 %; RBC 4.15 m/uL (4.30-5.90); RDW 13.9 % (11.5-15.5); WBC (Perox) 7.37
[2016-08-14] MEDS: METOPROLOL TARTRATE 50 MG TAB PO SCH (08:52)
[2016-08-14] MEDS: PANTOPRAZOLE 40 MG/10 ML VIAL IVP SCH ×2 (08:52→21:32)
[2016-08-14] MEDS: ATORVASTATIN 40 MG TAB PO SCH (08:52)
[2016-08-14 12:03] LABS: Glucose,Whole Blood 121 mg/dL (75-99)
--- NOTE | 2016-08-14 12:15 | P.PN ---
Subjective Principal diagnosis: Chest pain This is a 71-year-old gentleman who follows regularly with Dr. Almendarez in the office. He has a known history of coronary artery disease, in November of last year underwent stenting of an obtuse marginal branch of the circumflex, also had prior bypass surgery. History also of hypertension, hyperlipidemia. Patient presented to the hospital initially with symptoms of chest discomfort, he also had been noticing blood in his stool. After arrival to the hospital patient had matthew blood in his stool with evidence of clots and significantly dropped his hemoglobin. His aspirin and Plavix were both placed on hold. Patient underwent a scope by Dr. Garcia which revealed gastritis and erosions, her recommendation was to continue to hold the aspirin and Plavix for one week then to resume it. Overall the patient has remained stable, ready for discharge home today. JP globin today is 12.0. Objective - Vital Signs Vital signs: Vital Signs Temp 96.9 F L 08/14/16 08:00 Pulse 66 08/14/16 11:58 Resp 18 08/14/16 11:58 BP 136/70 08/14/16 11:58 Pulse Ox 97 08/14/16 11:58 Intake & Output 08/13/16 08/14/16 08/14/16 18:59 06:59 18:59 Intake Total 540 350 Output Total 200 Balance 340 350 Weight 121.7 kg 121.1 kg Intake: IV 300 Oral 240 350 Output: Urine 200 Other: Voiding Method Toilet Toilet Urinal # Voids 1 1 - Exam PHYSICAL EXAMINATION: HEENT: Head is atraumatic, normocephalic. Pupils equal, round. Neck is supple. There is no elevated jugular venous pressure. HEART EXAMINATION: Heart S1, S2 normal. No murmur or gallop heard. CHEST EXAMINATION: Lungs are clear to auscultation and precussion. No chest wall tenderness is noted on palpation or with deep breathing. ABDOMEN: Soft, nontender. Bowel sounds are heard. No organomegaly noted. EXTREMITIES: 2+ peripheral pulses with no evidence of peripheral edema and no calf tenderness noted. NEUROLOGIC patient is awake, alert and oriented -3. . - Labs CBC & Chem 7: 08/14/16 06:09 08/13/16 03:10 Labs: Abnormal Lab Results - Last 24 Hours (Table) 08/13/16 08/14/16 08/14/16 Range/Units 15:21 06:09 06:25 RBC 4.15 L (4.30-5.90) m/uL Hgb 12.8 L 12.0 L (13.0-17.5) gm/dL Hct 37.8 L (39.0-53.0) % Lymphocytes # 0.9 L (1.0-4.8) k/uL POC Glucose (mg/dL) 106 H (75-99) mg/dL 08/14/16 Range/Units 12:01 RBC (4.30-5.90) m/uL Hgb (13.0-17.5) gm/dL Hct (39.0-53.0) % Lymphocytes # (1.0-4.8) k/uL POC Glucose (mg/dL) 121 H (75-99) mg/dL Assessment and Plan (1) Chest pain Status: Acute (2) Lower GI bleed Status: Acute (3) CAD (coronary artery disease) Status: Acute (4) History of coronary artery bypass graft Status: Acute (5) Hypertension Status: Acute (6) Hyperlipidemia Status: Acute Plan: From cardiology's perspective, patient may be able to be discharged home today. Dr. Tin Garcia recommended to hold the patient's aspirin and Plavix for one more week and then to resume it. We will make the patient a follow-up appointment with Dr. Almendarez in the office in one week. DNP note has been reviewed, I agree with a documented findings and plan of care. Patient was seen and examined.
--- NOTE | 2016-08-14 14:07 | PN ---
DATE OF SERVICE: 08/14/2016 Patient is 71-year-old pleasant white male admitted to the hospital with chest pain. Subsequently, he had acute GI bleed. He underwent an upper endoscopy as well as colonoscopy yesterday. Upper endoscopy revealed erosive gastritis. Colonoscopy revealed small erosions in the cecum, diffuse diverticulosis, which was thought to be the source of bleeding and some diverticulosis. Patient is doing better. He had 3 small bowel movements since the colonoscopy with small amount of old blood. No abdominal pain. On physical examination, he appears comfortable in no apparent distress. Vital signs are stable. Blood pressure is 134/80, pulse rate 52, temperature 97.4. HEENT examination unremarkable. Conjunctivae pink. Sclerae anicteric. Oral cavity, no lesions. NECK: No JVD or lymph node enlargement. Chest was clear to auscultation. HEART: Regular rate and rhythm. ABDOMEN: Soft. Bowel sounds are positive. No organomegaly. EXTREMITIES: No pedal edema. SKIN: No rashes. NEURO: Alert and oriented x3. No focal deficits. Labs from today, hemoglobin is 12 g/dL. IMPRESSION: 1. Acute gastrointestinal bleed, possibly diverticular in nature, status post EGD and colonoscopy yesterday as mentioned above. No further bleeding. Hemoglobin stable. 2. Coronary artery disease, on aspirin and Plavix, presently on hold. RECOMMENDATIONS: 1. Advance diet as tolerated. 2. He can be discharged home today with an outpatient follow up in 2 weeks. 3. Advised to hold off on aspirin and Plavix for one more week.
--- NOTE | 2016-08-14 16:59 | P.DS ---
Providers Date of admission: 08/11/16 11:04 Attending physician: Geovany Zuñiga MD Primary care physician: [facility] Course: This is a 71-year-old gentleman with the triple-vessel disease thereafter undergoing a PCI to the one in January 2016 comes in to the hospital with complaints of progressive worsening of exertional dyspnea and chest pressure across his midsternal region. Patient denies the pressure being nonradiating it is exacerbated with activity no alleviating factors are reported. Patient states that over the last few days he has noted some dark to bright red blood on having bowel movements. Denies having any recent nausea vomiting or pain relief on defecation. Patient states does state that he has had epigastric pain over the last few days. In the emergency room patient's EKG showed a right bundle branch block with no significant change from appropriate prior EKG. Patient's cardiac enzymes subsequently were negative. However patient had another large bowel movement this a.m. hence was triaged to the stepdown ICU unit. Patient had a large bowel movement this a.m. that was bright red blood. Off note Patient states that he has been lightheaded however no significant dizziness chest pain nausea vomiting urinary urgency or frequency reported at this time. Patient has been on aspirin and Plavix for his recent PCI. Patient's last colonoscopy was 8 years ago was apparently told he has diverticulosis has been taking meloxicam for the last 3-4 weeks in addition to the aspirin and Plavix. 08/12/2016 States to be doing well. Has had one bowel movement with minimal blood in it or graft no fevers chills nausea vomiting diarrhea reported at this time. 08/13/16 Doing well no new overnight events 08/14/16 No new overnight events no significant bleeding episodes. - Exam Physical exam Gen. appearance oriented 3 in no distress Neck is supple no JVD Lungs good air entry clear to auscultation no rhonchi or wheezing Heart S1-S2 heard regular rate and rhythm no murmurs appreciated Abdomen is soft nontender no organomegaly bowel sounds are intact Neurologically cranial nerves II-12 grossly intact no focal motor or sensory deficits noted Skin no abnormalities appreciated Assessment and Plan Plan: Atypical chest pain ACS is ruled out #2 GI bleed with acute blood loss, stable sec to antral gastritis #3 CAD with a recent PCI to the OM-1 in a patient with triple-vessel bypass #4 history of hypertension #5 dyslipidemia #6 obesity #7 remote history of tobacco use HOLD off asa, plavix, and mobic. discussed tylenol use for pain. HB stable 12gm/dl close follow up Patient Condition at Discharge: Stable Plan - Discharge Summary New Discharge Prescriptions: Omeprazole [PriLOSEC] 40 mg PO AC-BRKFST #30 capsule.dr Discharge Medication List Lisinopril-Hctz 20-25 mg [Zestoretic 20-25] 0.5 tab PO DAILY 03/05/14 [History] Metoprolol Tartrate [Lopressor] 50 mg PO DAILY 03/05/14 [History] Multivitamin [Men's Multi-Vitamin] 1 tab PO DAILY 03/05/14 [History] Furosemide [Lasix] 40 mg PO DAILY PRN 03/06/14 [History] Simvastatin [Zocor] 20 mg PO DAILY 08/10/16 [History] Omeprazole [PriLOSEC] 40 mg PO AC-BRKFST #30 capsule. 08/14/16 [Rx] Follow up Appointment(s)/Referral(s): Gianni Greenfield DO [Primary Care Provider] - 1-2 days (Please call on Tuesday to make your appointment.) Gustavo Dunaway MD [STAFF PHYSICIAN] - 08/26/16 3:00 pm (August 26 is the earliest available appointment per the medical receptionist medical assistant, but a note was left for Dr. Dunaway that if he wants to see you earlier, the office will call you. ) Abiola Garcia MD [STAFF PHYSICIAN] - 2 Weeks (in 2-3 weeks, please call to make your appointment) Patient Instructions/Handouts: Angina (DC), Gastrointestinal Bleeding (DC) Activity/Diet/Wound Care/Special Instructions: Per DR. Roxane Garcia, do not take Aspirin or Plavix for one more week (could start ). Discharge Disposition: HOME SELF-CARE
[2016-08-14 17:03] LABS: Glucose,Whole Blood 105 mg/dL (75-99)
[2016-08-14 21:03] LABS: Glucose,Whole Blood 111 mg/dL (75-99)
[2016-08-14 21:23] VITALS: RESP 16
[2016-08-15] MEDS: SODIUM CHLORIDE 0.9% 1,000 ML IV SCH (02:59)
[2016-08-15] MEDS: NITROGLYCERIN OINT 1 INCH/GM PACKET TOPICAL SCH ×2 (05:41→11:33)
[2016-08-15 06:28] LABS: Glucose,Whole Blood 115 mg/dL (75-99)
[2016-08-15 06:41] LABS: Basophils % (A) 0 %; CH 29.4; CHCM 32.8; Eosinophils # (A) 0.1 k/uL (0-0.7); Eosinophils % (A) 2 %; HCT 37.2 % (39.0-53.0); HDW 2.43; HGB 12.2 gm/dL (13.0-17.5); Luc # (Auto) 0.26; Luc % (Auto) 4; Lymphocytes # (A) 0.9 k/uL (1.0-4.8); Lymphocytes % (A) 13 %; MCH 29.4 pg (25.0-35.0); MCHC 32.7 g/dL (31.0-37.0); Mean Platelet Volume 8.3; Monocytes # (A) 0.5 k/uL (0-1.0); Monocytes % (A) 7 %; Neutrophils # (A) 5.3 k/uL (1.3-7.7); Neutrophils % (A) 74 %; RBC 4.13 m/uL (4.30-5.90); RDW 13.9 % (11.5-15.5); WBC 7.1 k/uL (3.8-10.6); WBC (Perox) 7.78
[2016-08-15] MEDS: ATORVASTATIN 40 MG TAB PO SCH (09:05)
[2016-08-15] MEDS: PANTOPRAZOLE 40 MG/10 ML VIAL IVP SCH (09:05)
[2016-08-15] MEDS: METOPROLOL TARTRATE 50 MG TAB PO SCH (09:05)
[2016-08-15 11:36] LABS: Glucose,Whole Blood 152 mg/dL (75-99)
[2016-08-15 11:52] VITALS: BP 138/67; PULSE 66; TEMP 96.3
--- NOTE | 2016-08-15 12:20 | PN ---
DATE OF SERVICE: 08/15/2016 REQUESTING PHYSICIAN: Dr. Greenfield Patient is a 71-year-old white male admitted to the hospital with chest pain. Subsequently had gastrointestinal bleed. He had an EGD and a colonoscopy done by me 2 days ago that showed erosive gastritis, diverticulosis and scattered erosions in the cecum. The bleeding was thought to be diverticular in nature. He was being discharged from yesterday when he had another episode of bright red blood per rectum and hence the discharge was on hold. All through the night, last night at around 9:00 p.m. he had another smaller episode of dark blood in the stool. This morning he is doing fine, still sleeping. No more bleeding. On physical examination, he appears comfortable in no apparent distress. Vitals as are stable. Blood pressure 159/78, pulse rate 55 per minute and temperature 97.5. HEENT examination unremarkable. Conjunctivae pink. Sclerae anicteric. Oral cavity, no lesions. NECK: No JVD lymph node enlargement. CHEST: Clear to auscultation. HEART: Regular rate and rhythm. ABDOMEN: Soft. Bowel sounds are positive. No organomegaly. EXTREMITIES: No pedal edema. SKIN: No rashes. NEURO: Alert and oriented x3. No focal deficits. LABS: Today, WBC 7.1, hemoglobin 12.2, platelets are normal. IMPRESSION: Acute gastrointestinal bleed, possibly diverticular in nature, status post EGD, colonoscopy 2 days ago as mentioned above. He had an episode of bright red blood in the stool yesterday prior to discharge and hence it was on hold. Presently aspirin and Plavix are also on hold. He is hemodynamically stable. Today's hemoglobin is 12.2. RECOMMENDATIONS: 1. If the patient does not have any further bleeding he can be discharged home this afternoon. 2. Continue to hold aspirin and Plavix. 3. Follow up in the office in two weeks.
--- NOTE | 2016-08-15 16:30 | P.DS ---
Providers Date of admission: 08/11/16 11:04 Attending physician: Geovany Zuñiga MD Primary care physician: [facility] Course: Providers Date of admission: 08/11/16 11:04 Attending physician: Geovany Zuñiga MD Primary care physician: [facility] Course: This is a 71-year-old gentleman with the triple-vessel disease thereafter undergoing a PCI to the one in January 2016 comes in to the hospital with complaints of progressive worsening of exertional dyspnea and chest pressure across his midsternal region. Patient denies the pressure being nonradiating it is exacerbated with activity no alleviating factors are reported. Patient states that over the last few days he has noted some dark to bright red blood on having bowel movements. Denies having any recent nausea vomiting or pain relief on defecation. Patient states does state that he has had epigastric pain over the last few days. In the emergency room patient's EKG showed a right bundle branch block with no significant change from appropriate prior EKG. Patient's cardiac enzymes subsequently were negative. However patient had another large bowel movement this a.m. hence was triaged to the stepdown ICU unit. Patient had a large bowel movement this a.m. that was bright red blood. Off note Patient states that he has been lightheaded however no significant dizziness chest pain nausea vomiting urinary urgency or frequency reported at this time. Patient has been on aspirin and Plavix for his recent PCI. Patient's last colonoscopy was 8 years ago was apparently told he has diverticulosis has been taking meloxicam for the last 3-4 weeks in addition to the aspirin and Plavix. 08/12/2016 States to be doing well. Has had one bowel movement with minimal blood in it or graft no fevers chills nausea vomiting diarrhea reported at this time. 08/13/16 Doing well no new overnight events 08/14/16 No new overnight events no significant bleeding episodes. 08/15/16 had 2 small bms with black tarry material abdominal pain is improved HB stable. - Exam Physical exam Gen. appearance oriented 3 in no distress Neck is supple no JVD Lungs good air entry clear to auscultation no rhonchi or wheezing Heart S1-S2 heard regular rate and rhythm no murmurs appreciated Abdomen is soft nontender no organomegaly bowel sounds are intact Neurologically cranial nerves II-12 grossly intact no focal motor or sensory deficits noted Skin no abnormalities appreciated Assessment and Plan Plan: Atypical chest pain ACS is ruled out #2 GI bleed with acute blood loss, stable sec to antral gastritis #3 CAD with a recent PCI to the OM-1 in a patient with triple-vessel bypass #4 history of hypertension #5 dyslipidemia #6 obesity #7 remote history of tobacco use HOLD off asa, plavix, and mobic. discussed tylenol use for pain. HB stable close follow up Patient Condition at Discharge: Stable Plan - Discharge Summary New Discharge Prescriptions: Omeprazole [PriLOSEC] 40 mg PO AC-BRKFST #30 capsule.dr Discharge Medication List Lisinopril-Hctz 20-25 mg [Zestoretic 20-25] 0.5 tab PO DAILY 03/05/14 [History] Metoprolol Tartrate [Lopressor] 50 mg PO DAILY 03/05/14 [History] Multivitamin [Men's Multi-Vitamin] 1 tab PO DAILY 03/05/14 [History] Furosemide [Lasix] 40 mg PO DAILY PRN 03/06/14 [History] Simvastatin [Zocor] 20 mg PO DAILY 08/10/16 [History] Omeprazole [PriLOSEC] 40 mg PO AC-BRKFST #30 capsule. 08/14/16 [Rx] Follow up Appointment(s)/Referral(s): Gianni Greenfield DO [Primary Care Provider] - 1-2 days (Please call on Tuesday to make your appointment.) Gustavo Dunaway MD [STAFF PHYSICIAN] - 08/26/16 3:00 pm (August 26 is the earliest available appointment per the information receptionist, but a note was left for Dr. Dunaway that if he wants to see you earlier, the office will call you. ) Abiola Garcia MD [STAFF PHYSICIAN] - 2 Weeks (in 2-3 weeks, please call to make your appointment) Patient Instructions/Handouts: Angina (DC), Gastrointestinal Bleeding (DC), Diverticulosis (DC) Activity/Diet/Wound Care/Special Instructions: Per DR. Roxane Garcia, do not take Aspirin or Plavix for one more week (could start ). Discharge Disposition: HOME SELF-CARE
== END 2016-08-15 15:13 | disposition home or self-care (01) | DRG 378 ==
LOC: EC 17:36 → 6SEL 21:02 → OBSVTOIN 08-11 11:04 → 6SEL 08-11 12:37
PROVIDERS: ADMIT Internal Medicine; ATTEND Internal Medicine
PROC: 0DB68ZX Excision of Stomach, Via Natural or Artificial Opening Endoscopic, Diagnostic (ICD-10-PCS; principal; 2016-08-13 12:50)
PROC: 0DJD8ZZ Inspection of Lower Intestinal Tract, Via Natural or Artificial Opening Endoscopic (ICD-10-PCS; 2016-08-13 12:50)
DX: K29.01 Acute gastritis with bleeding (principal); E66.2 Morbid (severe) obesity with alveolar hypoventilation; K57.91 Diverticulosis of intestine, part unspecified, without perforation or abscess with bleeding; I45.10 Unspecified right bundle-branch block; I10 Essential (primary) hypertension; E78.5 Hyperlipidemia, unspecified; E78.00 Pure hypercholesterolemia, unspecified; H54.42 Blindness, left eye, normal vision right eye; I25.119 Atherosclerotic heart disease of native coronary artery with unspecified angina pectoris; K21.9 Gastro-esophageal reflux disease without esophagitis; K64.1 Second degree hemorrhoids; M19.90 Unspecified osteoarthritis, unspecified site; R07.89 Other chest pain; M25.551 Pain in right hip; M25.562 Pain in left knee; Z79.02 Long term (current) use of antithrombotics/antiplatelets; Z79.82 Long term (current) use of aspirin; Z79.899 Other long term (current) drug therapy; Z87.11 Personal history of peptic ulcer disease; Z87.891 Personal history of nicotine dependence; Z95.1 Presence of aortocoronary bypass graft; Z95.5 Presence of coronary angioplasty implant and graft; Z86.14 Personal history of Methicillin resistant Staphylococcus aureus infection
CPT/HCPCS: 36415; 43239; 45380; 71020; 80053; 80061; 82272; 82550; 82553; 83735; 83880; 84484; 85025; 85027; 85379; 85610; 85730; 86850; 86900; 86901; 88305; 88342; 93005; 93306; 94660; 96374; 99285

== ENCOUNTER 2017-04-19 06:35 | Day surgery (SDC) | payer MEDICARE ==
[2017-04-18 10:49] VITALS: BMI 44.0
[~2017-04-19 06:35] MED LIST: ALPRAZolam 0.25 MG TAB PO PRN; ALPRAZolam 0.5 MG TAB PO PRN; ASPIRIN 325 MG TAB PO STA; NITROGLYCERIN SL TABS 0.4 MG TAB SUBLINGUAL PRN; SODIUM CHLORIDE 0.9% 1,000 ML in EMPTY BAG 1 BAG IV ONE
[2017-04-19] MEDS ORDERED: ASPIRIN 81 MG ONE (07:11)
[2017-04-19] MEDS ORDERED: LIDOCAINE 2% INJ 20 MG/ML (20 ML MDV) ONE (07:21)
[2017-04-19] MEDS ORDERED: MIDAZOLAM 2 MG/2 ML VIAL ONE (07:28)
[2017-04-19] MEDS ORDERED: MIDAZOLAM 2 MG/2 ML VIAL IV ONE ×2 (07:36)
[2017-04-19] MEDS ORDERED: LIDOCAINE 2% INJ 20 MG/ML SQ ONE (07:39)
[2017-04-19 07:48] LABS: Basophils # (A) 0.1 k/uL (0-0.2); Basophils % (A) 1 %; CH 29.1; CHCM 32.4; Eosinophils # (A) 0.2 k/uL (0-0.7); Eosinophils % (A) 3 %; HCT 48.1 % (39.0-53.0); HDW 2.34; HGB 15.2 gm/dL (13.0-17.5); Luc % (Auto) 3; Lymphocytes # (A) 0.9 k/uL (1.0-4.8); Lymphocytes % (A) 13 %; MCH 28.4 pg (25.0-35.0); MCHC 31.6 g/dL (31.0-37.0); MCV 90.1 fL (80.0-100.0); Mean Platelet Volume 8.4; Monocytes # (A) 0.6 k/uL (0-1.0); Monocytes % (A) 9 %; Neutrophils # (A) 4.9 k/uL (1.3-7.7); Neutrophils % (A) 72 %; RBC 5.34 m/uL (4.30-5.90); RDW 15.4 % (11.5-15.5); WBC 6.8 k/uL (3.8-10.6); WBC (Perox) 6.63
[2017-04-19] MEDS ORDERED: BIVALIRUDIN BOLUS 250 MG/50 ML IV ONE (07:58)
[2017-04-19] MEDS ORDERED: BIVALIRUDIN 250 MG in SODIUM CHLORIDE 0.9% 50 ML IV ONE (07:59)
[2017-04-19 08:00] LABS: Anion Gap 8 mmol/L; Blood Urea Nitrogen 17 mg/dL (9-20); Calcium 9.7 mg/dL (8.4-10.2); Carbon Dioxide 28 mmol/L (22-30); Chloride 104 mmol/L (98-107); Glucose 128 mg/dL (74-99); Non-African American GFR(MDRD) >60 (>60 ml/min/1.73 sqM); Potassium 4.1 mmol/L (3.5-5.1); Sodium 140 mmol/L (137-145)
[2017-04-19] MEDS ORDERED: niCARdipine 25 MG/10 ML VIAL ONE (08:04)
[2017-04-19] MEDS ORDERED: HEPARIN SODIUM 1,000 UN/ML (10ML VL) ONE (08:14)
[2017-04-19] MEDS ORDERED: CLOPIDOGREL 75 MG TAB ONE (08:14)
[2017-04-19] MEDS ORDERED: IOHEXOL 350 MG/ML 125ML BOTTLE INJ ONE (08:18)
[2017-04-19] MEDS ORDERED: CLOPIDOGREL 75 MG TAB PO ONE (08:19)
[2017-04-19] MEDS ORDERED: diphenhydrAMINE 25 MG CAP PO PRN (08:19)
[2017-04-19] MEDS ORDERED: FUROSEMIDE 40 MG TAB PO PRN (08:19)
[2017-04-19] MEDS ORDERED: RX INFO: IV CONTRAST WAS GIVEN 1 EACH MISC MISCELLANE PRN (08:20)
[2017-04-19] MEDS ORDERED: ATROPINE SULFATE 0.1 MG/ML 10ML SYRINGE IV PRN (08:20)
[2017-04-19] MEDS ORDERED: ZOLPIDEM 5 MG TAB PO PRN (08:20)
[2017-04-19] MEDS ORDERED: NITROGLYCERIN SL TABS 0.4 MG TAB SUBLINGUAL PRN (08:20)
[2017-04-19] MEDS ORDERED: MAG HYDROX/AL HYDROX/SIMETH 30 ML CUP PO PRN (08:20)
[2017-04-19] MEDS ORDERED: SODIUM CHLORIDE 0.9% 1,000 ML IV SCH (08:30)
--- NOTE | 2017-04-19 08:56 | CC ---
CARDIAC CATHETERIZATION REPORT DATE OF SERVICE: April 19, 2017 PERFORMING PHYSICIAN: Gustavo Dunaway MD, senior licensing manager. PROCEDURE PERFORMED: 1. Selective left and right coronary angiogram. 2. Left internal mammary artery angiogram. 3. SVG to diagonal angiogram. 4. SVG to left circumflex angiogram. 5. Successful stenting of the SVG to diagonal using 2.5 x 15 mm Xience HEATHER with good angiographic results. INDICATION: This is a pleasant 72-year-old gentleman who is known to have coronary artery disease with the last heart catheterization was performed in November of 2016 and that revealed severe triple-vessel CAD with patent KAUR to LAD, occluded SVG to left circumflex and critical disease involving the SVG to diagonal. At that point, the patient underwent successful stenting of the left circumflex. The SVG to diagonal was a medium caliber vessel and was treated medically. Recently, he has been experiencing a chest discomfort and he underwent myocardial perfusion imaging stress test and that revealed anterior ischemia. He was brought today to undergo a heart catheterization. APPROACH: Right common femoral artery. COMPLICATION: None. LEVEL OF SEDATION: Moderate with sedation length of 40 minutes. PROCEDURE DESCRIPTION: After obtaining informed consent, the patient was brought to the cardiac labor relations specialist. The right common femoral artery was cannulated using micropuncture technique, the micropuncture wire passed easily and then I placed a 6-Swedish sheath in the right common femoral artery. After that, I did selective left and right coronary angiogram using JR4 and JL4 catheters. After that I did left internal mammary artery angiogram using the JR4 catheter. Then I did SVG to diagonal and SVG to left circumflex angiogram using the JR4 catheter. The procedure was completed without any complication. After that I did intervene on the SVG to diagonal. Please see a separate paragraph for that. SELECTIVE CORONARY ANGIOGRAM: 1. The left main is a large caliber vessel and seems to be angiographically normal. It bifurcates into the left circumflex and left anterior descending artery. 2. The left circumflex is a large caliber vessel and it is a dominant vessel. The proximal left circumflex has mild disease only and gives rise into the first obtuse marginal branch which is stented in the midportion and the stent is patent. The mid left circumflex appeared to have mild disease only. The circumflex distally by the bifurcation of into PDA and PLV branch has a disease appeared to be in the range of 60%. 3. The left anterior descending artery is 100% occluded in the proximal portion. 4. The RCA is a medium caliber vessel. It is a nondominant vessel and seems to be angiographically normal. CORONARY BYPASS ANGIOGRAM: 1. The SVG to diagonal appeared to have critical disease by the distal anastomosis. 2. The SVG to OM is occluded, which is known from before. 3. The KAUR to LAD is patent, but the KAUR itself is tortuous. 4. PCI of the SVG is diag. Anticoagulation was initiated using Angiomax. Subsequently I took an LCB guide and the SVG to diagonal was engaged. A whisper wire was used to wire that graft. After that I did PTCA ballooning using 2.0 x 12 mm balloon and then I deployed 2 x 15 mm Xience HEATHER where the stent was positioned under fluoroscopy guidance and deployed under 14 atmospheres for 20 seconds. The following angiogram showed good angiographic results without perforation and without dissection and the procedure was completed. CONCLUSION: 1. Occluded left anterior descending artery. 2. Patent stent in the first obtuse marginal branch of the left circumflex with intermediate disease involving the distal left circumflex which is a large caliber vessel. 3. Normal right coronary artery which is a nondominant vessel. 4. Occluded SVG to left circumflex which is chronic. 5. Critical disease involving the SVG to diagonal. 6. Patent KAUR to LAD. 7. Successful stenting of the SVG to diagonal as described above. POSTPROCEDURE MANAGEMENT: 1. Maximize medical treatment. 2. Follow up with the patient. MMODL / IJN: [id number] /
[2017-04-19] MEDS ORDERED: NON-FORMULARY DRUG (Ubidecarenone [Co Q-10] 100 MG) PO SCH (09:00)
[2017-04-19] MEDS ORDERED: HYDROmorphone 1 MG/ML 1 ML SYRINGE IVP PRN (09:20)
[2017-04-19] MEDS: LISINOPRIL 10 MG TAB PO SCH (15:03)
[2017-04-19] MEDS: MULTIVITAMINS, THERA 1 EACH TAB PO SCH (15:03)
[2017-04-19 23:59] VITALS: TEMP 97
[2017-04-20 04:10] VITALS: RESP 16
[2017-04-20 06:39] LABS: Basophils % (A) 1 %; CHCM 32.2; Eosinophils # (A) 0.2 k/uL (0-0.7); Eosinophils % (A) 3 %; HCT 47.8 % (39.0-53.0); HDW 2.27; HGB 14.8 gm/dL (13.0-17.5); Luc % (Auto) 3; Lymphocytes % (A) 15 %; MCH 28.1 pg (25.0-35.0); MCHC 31.1 g/dL (31.0-37.0); MCV 90.4 fL (80.0-100.0); Mean Platelet Volume 8.4; Monocytes # (A) 0.6 k/uL (0-1.0); Monocytes % (A) 9 %; Neutrophils # (A) 4.5 k/uL (1.3-7.7); Neutrophils % (A) 70 %; RBC 5.28 m/uL (4.30-5.90); RDW 15.3 % (11.5-15.5); WBC 6.5 k/uL (3.8-10.6); WBC (Perox) 6.28
[2017-04-20 06:45] LABS: Anion Gap 9 mmol/L; Blood Urea Nitrogen 17 mg/dL (9-20); Calcium 9.1 mg/dL (8.4-10.2); Carbon Dioxide 26 mmol/L (22-30); Chloride 104 mmol/L (98-107); Glucose 111 mg/dL (74-99); Non-African American GFR(MDRD) >60 (>60 ml/min/1.73 sqM); Potassium 4.1 mmol/L (3.5-5.1); Sodium 139 mmol/L (137-145)
[2017-04-20] MEDS ORDERED: ATORVASTATIN 10 MG TAB PO SCH (09:00)
[2017-04-20] MEDS ORDERED: ASPIRIN 81 MG PO SCH (09:00)
[2017-04-20] MEDS ORDERED: CLOPIDOGREL 75 MG TAB PO SCH (09:00)
[2017-04-20] MEDS ORDERED: MELOXICAM 7.5 MG TAB PO SCH (09:00)
[2017-04-20] MEDS ORDERED: METOPROLOL TARTRATE 50 MG TAB PO SCH (09:00)
[2017-04-20] MEDS: MULTIVITAMINS, THERA 1 EACH TAB PO SCH (10:00)
[2017-04-20] MEDS: LISINOPRIL 10 MG TAB PO SCH (10:00)
[2017-04-20 10:03] VITALS: BP 174/78
[2017-04-20 10:52] VITALS: PULSE 88
--- NOTE | 2017-04-20 14:18 | DS ---
DISCHARGE SUMMARY ADMISSION DATE: 04/19/2017 DISCHARGE DATE: 04/20/2017 BRIEF HISTORY: This is a very pleasant 72-year-old gentleman who was admitted to the hospital yesterday and underwent A heart catheterization as well as successful stenting of the SVG to diag using 2.5 x 15 mm Xience drug-eluting stent with good angiographic results. The procedure was performed from the right groin which is soft and nontender and without any bruises. On follow up with the patient today, he is doing good and he is asymptomatic. The patient is going to be discharged home on dual anti-platelet therapy and statin and I will follow up with the patient as an outpatient in the office. MMKADEL / JAZZMINEN: [id number] /
== END 2017-04-20 10:43 | disposition home or self-care (01) ==
LOC: CATHCVL 06:35 → 6SEL 08:15 → CATHCVL 04-20 10:43
PROVIDERS: ATTEND Internal Medicine Interventional Cardiology
DX: I25.110 Atherosclerotic heart disease of native coronary artery with unstable angina pectoris (principal); I25.700 Atherosclerosis of coronary artery bypass graft(s), unspecified, with unstable angina pectoris; I25.82 Chronic total occlusion of coronary artery; I45.10 Unspecified right bundle-branch block; R07.89 Other chest pain; R94.39 Abnormal result of other cardiovascular function study; I10 Essential (primary) hypertension; E78.00 Pure hypercholesterolemia, unspecified; Z95.1 Presence of aortocoronary bypass graft; Z95.5 Presence of coronary angioplasty implant and graft; E66.9 Obesity, unspecified; Z68.41 Body mass index [BMI] 40.0-44.9, adult; Z82.49 Family history of ischemic heart disease and other diseases of the circulatory system; Z87.891 Personal history of nicotine dependence; Z79.02 Long term (current) use of antithrombotics/antiplatelets; Z79.82 Long term (current) use of aspirin; Z79.899 Other long term (current) drug therapy
CPT/HCPCS: 94760; 93455; 80048 ×2; 85025 ×2; C9604; C1769 ×4; C1887; C1725; C1894; C1874; J2001; J2250; J1170; J0583; Q9967

== ENCOUNTER → 2017-08-19 | Outpatient (CLI) | payer MEDICARE ==
--- NOTE | 2017-08-19 13:19 | CT ---
EXAMINATION TYPE: CT brain wo con DATE OF EXAM: 08/19/2017 COMPARISON: NONE HISTORY: Head Injury CT DLP: 1054.[address] of the brain was performed. The ventricles, basal cisterns and sulci overlying the cerebral convexities demonstrate mild enlargem ent. There is no evidence for intracranial hemorrhage or sulcal effacement. There is decreased attenuation about the periventricular white matter and deep white matter of both c erebral hemispheres, compatible with chronic small vessel ischemia. Differential diagnosis does inclu de demyelination. No mass effects are seen.No midline shift. Osseous calvarium is intact. Left-sided occipital scalp laceration. If symptoms persist consider MRI. IMPRESSION: 1. Age related atrophic and chronic small vessel ischemic change without acute intracranial process s een at this time.
== END ==
LOC: RADCTMAIN 12:33
PROVIDERS: ATTEND Family Medicine
DX: G31.9 Degenerative disease of nervous system, unspecified (principal); I67.82 Cerebral ischemia; S09.90XA Unspecified injury of head, initial encounter; W19.XXXA Unspecified fall, initial encounter; Z88.8 Allergy status to other drugs, medicaments and biological substances
CPT/HCPCS: 70450

== ENCOUNTER → 2017-10-14 | Outpatient (CLI) | payer MEDICARE ==
[2017-10-14 14:06] LABS: Blood Urea Nitrogen 18 mg/dL (9-20)
--- NOTE | 2017-10-17 10:23 | CT ---
EXAMINATION TYPE: CT angio thoracic/abd aorta DATE OF EXAM: 10/14/2017 COMPARISON: NONE HISTORY: AAA CT DLP: 713 mGycm, Automated exposure control for dose reduction was used. CONTRAST: Performed injected with 125 ml mL of Isovue 370. TECHNIQUE: Axial images were obtained at 5 mm thick sections. Reconstructed images are reviewed on Tivra computer in the coronal plane. FINDINGS: Portion of the thyroid visualized is normal. No suspicious lung nodules or focal infiltrates are present. No enlarged mediastinal or hilar adenopathy is evident. The ascending aorta diameter at the level o f the main pulmonary artery is 4.1 cm. The main pulmonary artery diameter at the bifurcation is 2.8 cm. Aorta tapers normally through its visualized course. CT ABDOMEN: Liver and spleen as visualized appear normal. The pancreas appears atrophic. Kidneys appe ar normal without masses or cysts. Some hydronephrosis may be present on the left kidney. There is ar tifact present grainy appearance to the images within the abdomen. A ring artifact may be present. Po rtion of the study. Loops of bowel as visualized appear unremarkable. CT PELVIS: Urinary bladder is decompressed limiting evaluation. There is right inguinal hernia with m esenteric fat. Abdominal aorta: Aorta tapers normally throughout the visualized course. The common iliac vessels colleen ear normal. Internal and external iliac vessels are normal. Common femoral arteries to the profunda f emoris and superficial femoral arteries appear normal. Superficial femoral arteries and popliteal arteries are normal. Right trifurcation vessels appear nor mal. The anterior and posterior tibial arteries extend to the level of the ankle on the right. The le ft trifurcation vessels appear normal. The left posterior tibial artery and anterior tibial artery ex tending to the level of the ankle. Peroneal arteries appear to be present to the level ankle bilatera lly. IMPRESSIONS: 1. Ascending thoracic aortic aneurysm measuring 4.1 cm at the level the main pulmonary artery. This a ppears to terminate at the aortic arch. 2. The aorta tapers throughout its visualized course to the bifurcation. Lower extremity runoff appea rs normal. 3. There may be some mild hydronephrosis on the left kidney. 4. Right inguinal hernia with mesenteric fat.
== END | disposition home or self-care (01) ==
LOC: RADCTMAIN 13:23
PROVIDERS: ATTEND Internal Medicine Interventional Cardiology
DX: I71.2 Thoracic aortic aneurysm, without rupture (principal); K40.90 Unilateral inguinal hernia, without obstruction or gangrene, not specified as recurrent
CPT/HCPCS: 82565; 84520; 75635; 71275; 36415; Q9967

== ENCOUNTER 2018-04-28 22:14 | Observation (INO) | payer MEDICARE ==
--- NOTE | 2018-04-29 00:14 | ED ---
General Adult HPI - General Chief complaint: Recheck/Abnormal Lab/Rx Stated complaint: Hypertension, heartburn, headache Time Seen by Provider: 04/28/18 23:05 Source: patient, family Mode of arrival: wheelchair Limitations: physical limitation - History of Present Illness Onset/Timin -: hour(s) Location: chest Radiation: non-radiation Quality: burning Consistency: now resolved Improves with: other (Antacid) Worsens with: none Associated Symptoms: diaphoresis, shortness of breath - Related Data Home Medications Medication Instructions Recorded Confirmed Metoprolol Tartrate [Lopressor] 50 mg PO QAM 03/05/14 04/28/18 Aspirin [Adult Low Dose Aspirin EC] 81 mg PO QAM 04/18/17 04/28/18 Clopidogrel [Plavix] 75 mg PO QAM 04/18/17 04/28/18 Lisinopril [Zestril] 5 mg PO QAM 04/18/17 04/28/18 Turmeric Root Extract [Turmeric] 500 mg PO DAILY 04/28/18 04/28/18 Allergies Allergy/AdvReac Type Severity Reaction Status Date / Time No Known Allergies Allergy Verified 04/28/18 23:14 Review of Systems ROS Statement: Those systems with pertinent positive or pertinent negative responses have been documented in the HPI. ROS Other: All systems not noted in ROS Statement are negative. Constitutional: Denies: fever, chills Respiratory: Reports: dyspnea. Denies: cough, wheezes Cardiovascular: Reports: chest pain. Denies: palpitations, dyspnea on exertion , orthopnea, edema Gastrointestinal: Reports: nausea. 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 hernia History of Any Multi-Drug Resistant Organisms: MRSA Date of last positivie culture/infection: 2011 MDRO Source:: back Past Surgical History: Coronary Bypass/CABG, Heart Catheterization, Heart Catheterization With Stent, Hernia Repair Additional Past Surgical History / Comment(s): 12/25/15 PTCA with stent to OM-1 , CABG 1997 triple vessel, cardiac caths, 03/07/14 cardiac cath with stent. colonoscopy, L wrist ganglion cystectomy, umbilical hernia repair. Past Anesthesia/Blood Transfusion Reactions: No Reported Reaction Date of Last Stent Placement:: 12/25/15 Past Psychological History: No Psychological Hx Reported Smoking Status: Former smoker Past Alcohol Use History: None Reported Past Drug Use History: Marijuana - Past Family History Father Family Medical History: Cancer Additional Family Medical History / Comment(s): Father of cancer which started in his leg and went to his lungs. He was 82 yrs old. Mother Family Medical History: Musculoskeletal Disorder, Neurologic Disorder Additional Family Medical History / Comment(s): Mother had MS which pt states was cured. She also suffered from migraines. General Exam Limitations: physical limitation General appearance: alert, in no apparent distress Head exam: Present: atraumatic, normocephalic Eye exam: Present: normal appearance. Absent: scleral icterus, conjunctival injection ENT exam: Present: normal oropharynx Neck exam: Present: normal inspection Respiratory exam: Present: normal lung sounds bilaterally. Absent: respiratory distress, wheezes, rales, rhonchi, stridor Cardiovascular Exam: Present: regular rate, normal rhythm, normal heart sounds. Absent: systolic murmur, diastolic murmur, rubs, gallop GI/Abdominal exam: Present: soft. Absent: distended, tenderness, guarding, rebound, rigid, mass Extremities exam: Present: normal inspection, normal capillary refill, pedal edema (Left more than Right, which patient states is chronic for him.). Absent : calf tenderness Back exam: Present: normal inspection. Absent: CVA tenderness (R), CVA tenderness (L) Neurological exam: Present: alert Skin exam: Present: warm, dry, intact, normal color. Absent: rash Course Vital Signs 04/28/18 04/28/18 04/29/18 22:20 23:20 00:48 Temperature 97.2 F L Pulse Rate 79 62 Pulse Rate [ 73 Lead Portfolio Manager ] Respiratory 18 17 Rate Blood Pressure 158/96 140/76 O2 Sat by Pulse 96 96 Oximetry EKG Findings - EKG Results: EKG: interpreted by ERMD, sinus rhythm (Rate 78 bpm) - Blocks, Gustavus, Hypertrophy, ST Abn: AV and intraventricular conduction: right bundle branch block (fixed/ intermittent, complete/incomplete) QRS axis and voltage: left axis deviation (-30 to -90) - PA, Pacemaker, Normal: Myocardial infarction: inferior PA (old age indeterminate) Medical Decision Making - Lab Data Result diagrams: 04/28/18 23:05 04/28/18 23:05 Lab Results 04/28/18 04/28/18 04/28/18 Range/Units 23:05 23:05 23:05 WBC 8.7 (3.8-10.6) k/uL RBC 5.67 (4.30-5.90) m/uL Hgb 16.3 (13.0-17.5) gm/dL Hct 50.0 (39.0-53.0) % MCV 88.1 (80.0-100.0) fL MCH 28.8 (25.0-35.0) pg MCHC 32.7 (31.0-37.0) g/dL RDW 13.4 (11.5-15.5) % Plt Count 198 (150-450) k/uL Neutrophils % 74 % Lymphocytes % 12 % Monocytes % 7 % Eosinophils % 3 % Basophils % 1 % Neutrophils # 6.4 (1.3-7.7) k/uL Lymphocytes # 1.1 (1.0-4.8) k/uL Monocytes # 0.6 (0-1.0) k/uL Eosinophils # 0.2 (0-0.7) k/uL Basophils # 0.1 (0-0.2) k/uL PT (9.0-12.0) sec INR (<1.2) APTT (22.0-30.0) sec D-Dimer (<0.60) mg/L FEU Sodium 140 (137-145) mmol/L Potassium 4.3 (3.5-5.1) mmol/L Chloride 103 (98-107) mmol/L Carbon Dioxide 28 (22-30) mmol/L Anion Gap 9 mmol/L BUN 20 (9-20) mg/dL Creatinine 0.98 (0.66-1.25) mg/dL Est GFR (CKD-EPI)AfAm 89 (>60 ml/min/1.73 sqM) Est GFR (CKD-EPI)NonAf 77 (>60 ml/min/1.73 sqM) Glucose 131 H (74-99) mg/dL Calcium 9.5 (8.4-10.2) mg/dL Magnesium 1.9 (1.6-2.3) mg/dL Total Bilirubin 0.5 (0.2-1.3) mg/dL AST 26 (17-59) U/L ALT 28 (21-72) U/L Alkaline Phosphatase 117 (38-126) U/L Total Creatine Kinase 128 (55-170) U/L CK-MB (CK-2) 1.8 (0.0-2.4) ng/mL CK-MB (CK-2) Rel Index 1.4 Troponin I <0.012 (0.000-0.034) ng/mL NT-Pro-B Natriuret Pep pg/mL Total Protein 7.0 (6.3-8.2) g/dL Albumin 3.9 (3.5-5.0) g/dL 04/28/18 04/28/18 04/28/18 Range/Units 23:05 23:05 23:05 WBC (3.8-10.6) k/uL RBC (4.30-5.90) m/uL Hgb (13.0-17.5) gm/dL Hct (39.0-53.0) % MCV (80.0-100.0) fL MCH (25.0-35.0) pg MCHC (31.0-37.0) g/dL RDW (11.5-15.5) % Plt Count (150-450) k/uL Neutrophils % % Lymphocytes % % Monocytes % % Eosinophils % % Basophils % % Neutrophils # (1.3-7.7) k/uL Lymphocytes # (1.0-4.8) k/uL Monocytes # (0-1.0) k/uL Eosinophils # (0-0.7) k/uL Basophils # (0-0.2) k/uL PT 10.8 (9.0-12.0) sec INR 1.0 (<1.2) APTT 24.9 (22.0-30.0) sec D-Dimer 0.74 H (<0.60) mg/L FEU Sodium (137-145) mmol/L Potassium (3.5-5.1) mmol/L Chloride (98-107) mmol/L Carbon Dioxide (22-30) mmol/L Anion Gap mmol/L BUN (9-20) mg/dL Creatinine (0.66-1.25) mg/dL Est GFR (CKD-EPI)AfAm (>60 ml/min/1.73 sqM) Est GFR (CKD-EPI)NonAf (>60 ml/min/1.73 sqM) Glucose (74-99) mg/dL Calcium (8.4-10.2) mg/dL Magnesium (1.6-2.3) mg/dL Total Bilirubin (0.2-1.3) mg/dL AST (17-59) U/L ALT (21-72) U/L Alkaline Phosphatase (38-126) U/L Total Creatine Kinase (55-170) U/L CK-MB (CK-2) (0.0-2.4) ng/mL CK-MB (CK-2) Rel Index Troponin I (0.000-0.034) ng/mL NT-Pro-B Natriuret Pep 68 pg/mL Total Protein (6.3-8.2) g/dL Albumin (3.5-5.0) g/dL Disposition Clinical Impression: Chest pain Disposition: ADMITTED IP TO THIS HOSP Condition: Fair Is patient prescribed a controlled substance at d/c from ED?: No Referrals: Gianni Greenfield DO [Primary Care Provider] - 1-2 days
[2018-04-29 00:22] LABS: Basophils # (A) 0.1 k/uL (0-0.2); Basophils % (A) 1 %; Eosinophils # (A) 0.2 k/uL (0-0.7); Eosinophils % (A) 3 %; HGB 16.3 gm/dL (13.0-17.5); Lymphocytes # (A) 1.1 k/uL (1.0-4.8); Lymphocytes % (A) 12 %; MCH 28.8 pg (25.0-35.0); MCHC 32.7 g/dL (31.0-37.0); MCV 88.1 fL (80.0-100.0); Mean Platelet Volume 8.1; Monocytes # (A) 0.6 k/uL (0-1.0); Monocytes % (A) 7 %; Neutrophils # (A) 6.4 k/uL (1.3-7.7); Neutrophils % (A) 74 %; Platelet Count 198 k/uL (150-450); RBC 5.67 m/uL (4.30-5.90); RDW 13.4 % (11.5-15.5); WBC 8.7 k/uL (3.8-10.6)
[2018-04-29 00:32] LABS: Albumin 3.9 g/dL (3.5-5.0); Calcium 9.5 mg/dL (8.4-10.2); Magnesium 1.9 mg/dL (1.6-2.3); Potassium 4.3 mmol/L (3.5-5.1); Total Bilirubin 0.5 mg/dL (0.2-1.3)
[2018-04-29 00:37] LABS: Prothrombin Time 10.8 sec (9.0-12.0)
[2018-04-29 00:38] LABS: Partial Thromboplastin Time 24.9 sec (22.0-30.0)
--- NOTE | 2018-04-29 00:38 | XR ---
EXAMINATION TYPE: XR chest 1V portable DATE OF EXAM: 04/29/2018 COMPARISON: 08/10/2016 HISTORY: Chest pain TECHNIQUE: Single frontal view of the chest is obtained. FINDINGS: There is no heart failure nor confluent pneumonic infiltrate. Costophrenic angles are annie r. There are sternal wires. There are chest leads. There is no evidence of pleural effusion. IMPRESSION: No active cardiopulmonary disease. No change.
[2018-04-29 00:57] LABS: Creatine Kinase 128 U/L (55-170)
[2018-04-29 01:07] LABS: Creatine Kinase MB 1.8 ng/mL (0.0-2.4)
[2018-04-29 01:09] LABS: Troponin I <0.012 ng/mL (0.000-0.034)
[2018-04-29] MEDS ORDERED: NITROGLYCERIN SL TABS 0.4 MG TAB SUBLINGUAL PRN (01:24)
[2018-04-29 07:00] LABS: Creatine Kinase 107 U/L (55-170)
[2018-04-29 07:13] LABS: Creatine Kinase MB 1.4 ng/mL (0.0-2.4); Troponin I <0.012 ng/mL (0.000-0.034)
[2018-04-29] MEDS ORDERED: CLOPIDOGREL 75 MG TAB PO SCH (09:00)
[2018-04-29] MEDS ORDERED: LISINOPRIL 5 MG TAB PO SCH (09:00)
[2018-04-29] MEDS ORDERED: METOPROLOL TARTRATE 50 MG TAB PO SCH (09:00)
--- NOTE | 2018-04-29 11:05 | P.CRDCN ---
History of Present Illness History of present illness: This is Dr. Ray dictating a consult on this patient The patient was interviewed and examined by me IMPRESSION / ASSESSMENT: Patient presented with feeling tired and fatigued. He denied chest discomfort. Elevated blood pressures Coronary artery disease Dyslipidemia Hypertension Obstructive sleep apnea Increased BMI and Central obesity PLAN: Increase antihypertensive therapy. Start lisinopril 20/12.5 mg by mouth daily. Currently there is no evidence for an acute myocardial infarction. He should we will go home later today in follow-up with Dr. Almendarez who is his primary business services officer in about 2 weeks or so Continue all other cardiac medications Start atorvastatin 20 mg daily HPI the ER note states patient presented with chest discomfort nonradiating of a burning quality with associated diaphoresis and shortness of breath The patient denied any chest discomfort. He was working outside yesterday and he felt extremely tired and fatigued and in a bit of a headache and maybe some blurred vision he was just exhausted. Denied shortness of breath denies chest pain Usually he takes lisinopril hydrochlorothiazide 10/12.5 mg by mouth daily. Here , he was started on 5 mg of lisinopril and his blood pressure is elevated, quite consistently while in the hospital Past history of coronary artery disease GERD dyslipidemia hypertension obstructive sleep apnea ROS: No fever chills or rigors, no cough, phlegm or expectoration, no nausea, vomiting or diarrhea, no hematuria, dysuria, no musculoskeletal complaints, no strokes or seizures, no skin lesions. EXAMINATION Elevated blood pressures Normal heart sounds no murmurs or gallops. 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 History of Any Multi-Drug Resistant Organisms: MRSA Date of last positivie culture/infection: 2011 MDRO Source:: back Past Surgical History: Coronary Bypass/CABG, Heart Catheterization, Heart Catheterization With Stent, Hernia Repair Additional Past Surgical History / Comment(s): 12/25/15 PTCA with stent to OM-1 , CABG 1997 triple vessel, cardiac caths, 03/07/14 cardiac cath with stent. colonoscopy, L wrist ganglion cystectomy, umbilical hernia repair. Past Anesthesia/Blood Transfusion Reactions: No Reported Reaction Date of Last Stent Placement:: 12/25/15 Past Psychological History: No Psychological Hx Reported Smoking Status: Former smoker Past Alcohol Use History: None Reported Past Drug Use History: Marijuana Additional Drug Use History / Comment(s): occasional marijuana use - Past Family History Father Family Medical History: Cancer Additional Family Medical History / Comment(s): Father of cancer which started in his leg and went to his lungs. He was 82 yrs old. Mother Family Medical History: Musculoskeletal Disorder, Neurologic Disorder Additional Family Medical History / Comment(s): Mother had MS which pt states was cured. She also suffered from migraines. Medications and Allergies Home Medications Medication Instructions Recorded Confirmed Type Metoprolol Tartrate [Lopressor] 50 mg PO QAM 03/05/14 04/29/18 History Aspirin [Adult Low Dose Aspirin EC] 81 mg PO QAM 04/18/17 04/29/18 History Clopidogrel [Plavix] 75 mg PO QAM 04/18/17 04/29/18 History Turmeric Root Extract [Turmeric] 500 mg PO DAILY 04/28/18 04/29/18 History Lisinopril-Hctz 10-12.5 mg 1 mg PO DAILY 04/29/18 04/29/18 History [Zestoretic 10-12.5] Ubidecarenone [Co Q-10] 400 mg PO DAILY 04/29/18 04/29/18 History Allergies Allergy/AdvReac Type Severity Reaction Status Date / Time No Known Allergies Allergy Verified 04/29/18 03:03 Physical Exam Vitals: Vital Signs Temp Pulse Pulse Pulse Resp BP BP 04/29/18 03:55 97.6 F 58 L 18 166/93 04/29/18 03:28 18 04/29/18 02:37 98.4 F 53 L 18 131/85 04/29/18 00:48 62 17 140/76 04/28/18 23:20 73 04/28/18 22:20 97.2 F L 79 18 158/96 Pulse Ox 04/29/18 03:55 94 L 04/29/18 03:28 04/29/18 02:37 96 04/29/18 00:48 96 04/28/18 23:20 04/28/18 22:20 96 Intake and Output 04/28/18 04/29/18 04/29/18 22:59 06:59 14:59 Other: Voiding Method Toilet # Voids 2 Weight 124.738 kg Results 04/28/18 23:05 04/28/18 23:05 Cardiac Enzymes 04/28/18 04/28/18 04/29/18 Range/Units 23:05 23:05 05:00 AST 26 (17-59) U/L CK-MB (CK-2) 1.8 1.4 (0.0-2.4) ng/mL Troponin I <0.012 <0.012 (0.000-0.034) ng/mL Coagulation 04/28/18 Range/Units 23:05 PT 10.8 (9.0-12.0) sec APTT 24.9 (22.0-30.0) sec CBC 04/28/18 Range/Units 23:05 WBC 8.7 (3.8-10.6) k/uL RBC 5.67 (4.30-5.90) m/uL Hgb 16.3 (13.0-17.5) gm/dL Hct 50.0 (39.0-53.0) % Plt Count 198 (150-450) k/uL Comprehensive Metabolic Panel 04/28/18 Range/Units 23:05 Sodium 140 (137-145) mmol/L Potassium 4.3 (3.5-5.1) mmol/L Chloride 103 (98-107) mmol/L Carbon Dioxide 28 (22-30) mmol/L BUN 20 (9-20) mg/dL Creatinine 0.98 (0.66-1.25) mg/dL Glucose 131 H (74-99) mg/dL Calcium 9.5 (8.4-10.2) mg/dL AST 26 (17-59) U/L ALT 28 (21-72) U/L Alkaline Phosphatase 117 (38-126) U/L Total Protein 7.0 (6.3-8.2) g/dL Albumin 3.9 (3.5-5.0) g/dL Current Medications Generic Name Dose Route Start Last Admin Trade Name Freq PRN Reason Stop Dose Admin Aspirin 325 mg 04/30/18 09:00 Aspirin PO DAILY [facility] Clopidogrel Bisulfate 75 mg 04/29/18 09:00 Plavix PO QAM [facility] Lisinopril 5 mg 04/29/18 09:00 Zestril PO QAM [facility] Metoprolol Tartrate 50 mg 04/29/18 09:00 Lopressor PO QAM [facility] Nitroglycerin 0.4 mg 04/29/18 01:24 Nitrostat SUBLINGUAL Q5M PRN Chest Pain Sodium Chloride 10 ml 04/29/18 09:00 Saline Flush IV BID [facility] Intake and Output 04/28/18 04/29/18 04/29/18 22:59 06:59 14:59 Other: Voiding Method Toilet # Voids 2 Weight 124.738 kg 04/28/18 23:05 04/28/18 23:05
[2018-04-29] MEDS ORDERED: LISINOPRIL-HCTZ 20-12.5 MG 1 EACH TAB PO SCH (11:15)
[2018-04-29 11:47] LABS: Creatine Kinase 106 U/L (55-170)
[2018-04-29 11:49] VITALS: RESP 16
[2018-04-29 11:59] LABS: Creatine Kinase MB 1.4 ng/mL (0.0-2.4); Troponin I <0.012 ng/mL (0.000-0.034)
[2018-04-29] MEDS ORDERED: SODIUM CHLORIDE 0.9% 1,000 ML IV SCH (15:45)
--- NOTE | 2018-04-29 16:16 | P.HPIM ---
History of Present Illness This is a pleasant 73 years old male with past medical history of coronary artery disease, GERD, hyperlipidemia, hypertension, sleep apnea, chronic leg edema. He presents because of multiple symptoms. Patient states that yesterday he was working in his garden when he felt tired and went to sit down in his home. He noticed to have some mild headache in the back of his head associated with some epigastric discomfort, his such check and his blood pressure several times and placed systolic reading was going up from 155 to 180s , so he got worried and he came to the emergency room. Patient has been already evaluated by outboard technician and he is cleared him for discharge. However patient stated that he also was complaining of from gradually progressively worsening right thigh pain on the medial side which he thought is a due to his hernia even he went to see his surgeon. Associated with chronic leg swelling and tenderness in his right leg. Patient also holds a sedentary lifestyle and he works by driving for delivery. Recently he was driving to [place] for about 12- 13 hours as his been telling me. Patient denies history of cancer, no recent surgery and no hemoptysis. I calculated his [place] for PE and its 3-4.5, which is low to moderate risk, besides he has risk factors including long hours and driving. D-dimer has already been checked and its elevated at 0.74. I discussed the case with patient and explained to him the risks, benefits and alternative, including but not limited to the risk of nephrotoxicity and he agrees to do CTPA. Also we'll do Doppler ultrasound to rule out venous thrombosis and a few of his leg pain and tenderness. Patient denies upper chest pain or discomfort, no dyspnea. However he has some lightheadedness at times. And he has some epigastric discomfort, on the top of that patient is obese. Of note in the emergency room documented he has diaphoresis and shortness of breath although the patient is not told me that currently Review of Systems CONSTITUTIONAL: No fever, no malaise, no fatigue. HEENT: No recent visual problems or hearing problems. Denied any sore throat. CARDIOVASCULAR: No orthopnea, PND, no palpitations, no syncope. PULMONARY: No shortness of breath, no cough, no hemoptysis. GASTROINTESTINAL: No diarrhea, no nausea, no vomiting, no abdominal pain. Normoactive bowel sounds. NEUROLOGICAL: No headaches, no weakness, no numbness. HEMATOLOGICAL: Denies any bleeding or petechiae. GENITOURINARY: Denies any burning micturition, frequency, or urgency. MUSCULOSKELETAL/RHEUMATOLOGICAL: Denies any joint pain, swelling, or any muscle pain. ENDOCRINE: Denies any polyuria or polydipsia. 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 History of Any Multi-Drug Resistant Organisms: MRSA Date of last positivie culture/infection: 2011 MDRO Source:: back Past Surgical History: Coronary Bypass/CABG, Heart Catheterization, Heart Catheterization With Stent, Hernia Repair Additional Past Surgical History / Comment(s): 12/25/15 PTCA with stent to OM-1 , CABG 1997 triple vessel, cardiac caths, 03/07/14 cardiac cath with stent. colonoscopy, L wrist ganglion cystectomy, umbilical hernia repair. Past Anesthesia/Blood Transfusion Reactions: No Reported Reaction Date of Last Stent Placement:: 12/25/15 Past Psychological History: No Psychological Hx Reported Smoking Status: Former smoker Past Alcohol Use History: None Reported Past Drug Use History: Marijuana Additional Drug Use History / Comment(s): occasional marijuana use - Past Family History Father Family Medical History: Cancer Additional Family Medical History / Comment(s): Father of cancer which started in his leg and went to his lungs. He was 82 yrs old. Mother Family Medical History: Musculoskeletal Disorder, Neurologic Disorder Additional Family Medical History / Comment(s): Mother had MS which pt states was cured. She also suffered from migraines. Medications and Allergies Home Medications Medication Instructions Recorded Confirmed Type Metoprolol Tartrate [Lopressor] 50 mg PO QAM 03/05/14 04/29/18 History Aspirin [Adult Low Dose Aspirin EC] 81 mg PO QAM 04/18/17 04/29/18 History Clopidogrel [Plavix] 75 mg PO QAM 04/18/17 04/29/18 History Turmeric Root Extract [Turmeric] 500 mg PO DAILY 04/28/18 04/29/18 History Lisinopril-Hctz 10-12.5 mg 1 mg PO DAILY 04/29/18 04/29/18 History [Zestoretic 10-12.5] Ubidecarenone [Co Q-10] 400 mg PO DAILY 04/29/18 04/29/18 History Allergies Allergy/AdvReac Type Severity Reaction Status Date / Time No Known Allergies Allergy Verified 04/29/18 03:03 Physical Exam Vitals: Vital Signs Temp Pulse Pulse Pulse Resp BP BP 04/29/18 11:48 97.7 F 61 16 155/94 04/29/18 08:20 97.6 F 64 18 154/79 04/29/18 03:55 97.6 F 58 L 18 166/93 04/29/18 03:28 18 04/29/18 02:37 98.4 F 53 L 18 131/85 04/29/18 00:48 62 17 140/76 04/28/18 23:20 73 04/28/18 22:20 97.2 F L 79 18 158/96 Pulse Ox 04/29/18 11:48 94 L 04/29/18 08:20 97 04/29/18 03:55 94 L 04/29/18 03:28 04/29/18 02:37 96 04/29/18 00:48 96 04/28/18 23:20 04/28/18 22:20 96 Intake and Output 04/29/18 04/29/18 04/29/18 06:59 14:59 22:59 Other: Voiding Method Toilet # Voids 2 1 GENERAL: The patient is alert and oriented x3, not in any acute distress. Obese HEENT: Pupils are round and equally reacting to light. EOMI. No scleral icterus. No conjunctival pallor. Normocephalic, atraumatic. No pharyngeal erythema. No thyromegaly. CARDIOVASCULAR: S1 and S2 present. No murmurs, rubs, or gallops. PULMONARY: Chest is clear to auscultation, no wheezing or crackles. ABDOMEN: Soft, nontender, nondistended, normoactive bowel sounds. No palpable organomegaly. MUSCULOSKELETAL: No joint swelling or deformity. -EXTREMITIES: No cyanosis, clubbing, bilateral leg swelling and edema which is pitting, and right leg tenderness as well as on the medial side of the thigh. NEUROLOGICAL: Gross neurological examination did not reveal any focal deficits. SKIN: No rashes. Results CBC & Chem 7: 04/28/18 23:05 04/28/18 23:05 Labs: Abnormal Lab Results - Last 24 Hours (Table) 04/28/18 04/28/18 Range/Units 23:05 23:05 D-Dimer 0.74 H (<0.60) mg/L FEU Glucose 131 H (74-99) mg/dL Thrombosis Risk Factor Assmnt - Choose All That Apply Any of the Below Risk Factors Present?: Yes Each Factor Represents 1 point: Obesity (BMI >25), Swollen legs (current) Other Risk Factors: Yes Each Risk Factor Represents 2 Points: Age 61-74 years Other congenital or acquired thrombophilia - If yes, enter type in comment: No Thrombosis Risk Factor Assessment Total Risk Factor Score: 4 Thrombosis Risk Factor Assessment Level: Moderate Risk Assessment and Plan Assessment: Right leg pain and tenderness Epigastric discomfort, resolved. Documented dyspnea and diaphoresis Periods of lightheadedness Elevated d-dimer History of coronary artery disease History of GERD Hyperlipidemia Essential hypertension Is sleep apnea Chronic leg swelling Obesity Plan: This is a pleasant 73 years old male who presents with multiple symptoms like feeling tired, some headache, abdominal discomfort in the epigastrium, right leg pain with some lightheadedness and elevated d-dimer. Cardiology evaluated the patient and already cleared him for discharge, will do CT angio of the chest to rule out PE. Doppler in view of his lack pain and tenderness to rule out DVT. Labs and medication were reviewed.. Continue same treatment. Continue with symptomatic treatment. Resume home medication. Monitor lytes and vitals. DVT and GI prophylaxis. Further recommendations of the clinical course of the patient DVT prophylaxis: Subcutaneous heparin GI Prophylaxis: Pepcid PT/OT: Pending Prognosis is guarded
[2018-04-29 16:29] VITALS: BP 136/78; PULSE 56; TEMP 97.5
--- NOTE | 2018-04-29 16:38 | CT ---
EXAMINATION TYPE: CT angio chest DATE OF EXAM: 04/29/2018 4:16 PM COMPARISON: None HISTORY: R/O PE, hypertension CT DLP: 812.6 mGycm Automated exposure control for dose reduction was used. CONTRAST: CTA scan of the thorax is performed with IV Contrast, patient injected with 100 mL of Isovue 370, pul monary embolism protocol. There are 3-D post processed images.. FINDINGS: There is coarsening of the pulmonary interstitial markings. Heart is enlarged. Thoracic aorta shows m ild atheromatous change. The ascending aorta measures 3.7 cm. There is no mediastinal adenopathy. The re are no hilar masses. There is no pleural effusion. There is normal contrast opacification of the pulmonary arteries. I see no filling defect. There is upper abdominal large ventral hernia extending to the right side. IMPRESSION: NO EVIDENCE OF PULMONARY EMBOLISM. CARDIOMEGALY. INTERSTITIAL FIBROTIC CHANGES.
--- NOTE | 2018-04-29 16:59 | US ---
EXAMINATION TYPE: US venous doppler duplex LE DATE OF EXAM: 04/29/2018 4:45 PM COMPARISON: NONE CLINICAL HISTORY: Rule out DVT. Elevated D dimer, right groin pain. SIDE PERFORMED: Bilateral TECHNIQUE: The lower extremity deep venous system is examined utilizing real time linear array sonog niya with graded compression, doppler sonography and color-flow sonography. VESSELS IMAGED: External Iliac Vein (EIV) Common Femoral Vein Deep Femoral Vein Greater Saphenous Vein * Femoral Vein Popliteal Vein Proximal Calf Veins (* superficial vessels) Right Leg: Negative for DVT Left Leg: Negative for DVT IMPRESSION: Normal exam. No evidence of deep venous thrombosis in both legs.
--- NOTE | 2018-04-29 18:28 | P.DS ---
Providers Date of admission: 04/29/18 01:24 Attending physician: Lynne Feliz Consults: 04/29/18 01:24 Consult Physician Routine Consulting Provider: Guevara Donis Consult Reason/Comments: chest pain Do you want consulting provider notified?: Yes Primary care physician: Gianni Greenfield [facility] Course: Please refer to my H&P for further details Addendum: Patient had CAT scan of the chest with IV contrast which was negative for PE, also the Doppler for the lower extremity is negative for DVT patient's symptoms improved and he feels ready to go home. Patient's symptoms are improved including no headache, no epigastric heartburns or discomfort, no more fatigue, Patient has been cleared by cardiology for discharge. Problems and management plan was discussed with patient in details and he verbalized understanding and acceptance. Patient was found stable and can be discharged home however he needs follow-up as an outpatient. Patient encouraged with oral hydration he agrees. Patient told me he is going to call and make appointments has instructed has today's weekend the staff could not make appointments for Patient Condition at Discharge: Fair Plan - Discharge Summary Discharge Rx Participant: No New Discharge Prescriptions: New Atorvastatin [Lipitor] 20 mg PO DAILY #30 tab Lisinopril-Hctz 20-12.5 mg [Zestoretic 20-12.5] 1 each PO DAILY #30 tab Nitroglycerin Sl Tabs [Nitrostat] 0.4 mg SUBLINGUAL Q5M PRN #20 tab PRN Reason: Chest Pain Continue Metoprolol Tartrate [Lopressor] 50 mg PO QAM Clopidogrel [Plavix] 75 mg PO QAM Aspirin [Adult Low Dose Aspirin EC] 81 mg PO QAM Turmeric Root Extract [Turmeric] 500 mg PO DAILY Ubidecarenone [Co Q-10] 400 mg PO DAILY Lisinopril-Hctz 10-12.5 mg [Zestoretic 10-12.5] 1 mg PO DAILY Discharge Medication List Metoprolol Tartrate [Lopressor] 50 mg PO QAM 03/05/14 [History] Aspirin [Adult Low Dose Aspirin EC] 81 mg PO QAM 04/18/17 [History] Clopidogrel [Plavix] 75 mg PO QAM 04/18/17 [History] Turmeric Root Extract [Turmeric] 500 mg PO DAILY 04/28/18 [History] Atorvastatin [Lipitor] 20 mg PO DAILY #30 tab 04/29/18 [Rx] Lisinopril-Hctz 10-12.5 mg [Zestoretic 10-12.5] 1 mg PO DAILY 04/29/18 [History] Lisinopril-Hctz 20-12.5 mg [Zestoretic 20-12.5] 1 each PO DAILY #30 tab [Rx] Nitroglycerin Sl Tabs [Nitrostat] 0.4 mg SUBLINGUAL Q5M PRN #20 tab 04/29/18 [Rx ] Ubidecarenone [Co Q-10] 400 mg PO DAILY 04/29/18 [History] Follow up Appointment(s)/Referral(s): Gianni Greenfield DO [Primary Care Provider] - 1-2 days Gustavo Dunaway MD [STAFF PHYSICIAN] - 2 Weeks (Patient may go home from a cardiac standpoint and follow up with Dr. Almendarez in the next 3 weeks Lisinopril hydrochlorothiazide dose has been changed to 20/12.5 mg by mouth daily) Activity/Diet/Wound Care/Special Instructions: cardiac diet , encourage oral hydration activity as tolerated Discharge Disposition: HOME SELF-CARE
[2018-04-30] MEDS ORDERED: ATORVASTATIN 20 MG TAB PO SCH (09:00)
[2018-04-30] MEDS ORDERED: ASPIRIN 325 MG TAB PO SCH (09:00)
== END 2018-04-29 20:36 | disposition home or self-care (01) ==
LOC: EC 22:14 → 1SOBS 04-29 01:24
PROVIDERS: ADMIT Internal Medicine; ATTEND Internal Medicine
DX: R07.89 Other chest pain (principal); R79.89 Other specified abnormal findings of blood chemistry; I10 Essential (primary) hypertension; R53.83 Other fatigue; R60.0 Localized edema; M79.651 Pain in right thigh; R10.13 Epigastric pain; R51 Headache; R61 Generalized hyperhidrosis; R42 Dizziness and giddiness; R06.02 Shortness of breath; K21.9 Gastro-esophageal reflux disease without esophagitis; I25.10 Atherosclerotic heart disease of native coronary artery without angina pectoris; G47.33 Obstructive sleep apnea (adult) (pediatric); Z99.89 Dependence on other enabling machines and devices; E78.5 Hyperlipidemia, unspecified; M19.90 Unspecified osteoarthritis, unspecified site; E66.9 Obesity, unspecified; Z68.42 Body mass index [BMI] 45.0-49.9, adult; H54.62 Unqualified visual loss, left eye, normal vision right eye; K57.90 Diverticulosis of intestine, part unspecified, without perforation or abscess without bleeding; Z79.82 Long term (current) use of aspirin; Z79.02 Long term (current) use of antithrombotics/antiplatelets; Z79.899 Other long term (current) drug therapy; Z86.14 Personal history of Methicillin resistant Staphylococcus aureus infection; Z95.1 Presence of aortocoronary bypass graft; Z95.5 Presence of coronary angioplasty implant and graft; Z87.891 Personal history of nicotine dependence; Z80.9 Family history of malignant neoplasm, unspecified; Z82.69 Family history of other diseases of the musculoskeletal system and connective tissue; Z82.0 Family history of epilepsy and other diseases of the nervous system
CPT/HCPCS: 99285; 36415; 93005; 85379; 83880; 80053; 82550; 82553; 83735; 84484; 85025; 85610; 85730; 71045; 93970; 71275; G0378; Q9967

== ENCOUNTER → 2018-12-11 | Outpatient (CLI) | payer MEDICARE ==
[2018-12-11 13:51] LABS: HCT 47.4 % (39.0-53.0); HGB 15.5 gm/dL (13.0-17.5); MCH 29.3 pg (25.0-35.0); MCHC 32.8 g/dL (31.0-37.0); MCV 89.4 fL (80.0-100.0); Mean Platelet Volume 7.6; Platelet Count 213 k/uL (150-450); RDW 13.9 % (11.5-15.5); WBC 7.7 k/uL (3.8-10.6)
[2018-12-11 13:52] LABS: Appearance,Urine Clear (Clear); Bilirubin,Urine Negative (Negative); Blood,Urine Negative (Negative); Color,Urine Yellow; Glucose,Urine (UA) Negative (Negative); Ketones,Urine Negative (Negative); Leukocyte Esterase,Urine Negative (Negative); Nitrite,Urine Negative (Negative); PH, Urine 5.5 (5.0-8.0); Protein,Urine Negative (Negative); Specific Gravity,Urine 1.021 (1.001-1.035); Urobilinogen,Urine <2.0 mg/dL (<2.0)
[2018-12-11 14:02] LABS: Partial Thromboplastin Time 25.5 sec (22.0-30.0)
[2018-12-11 14:09] LABS: Albumin 3.8 g/dL (3.5-5.0); Calcium 9.4 mg/dL (8.4-10.2); Potassium 4.5 mmol/L (3.5-5.1); Total Bilirubin 0.7 mg/dL (0.2-1.3); Total Protein 6.8 g/dL (6.3-8.2)
== END | disposition home or self-care (01) ==
LOC: LABPAT 12:19
PROVIDERS: ATTEND Orthopaedic Surgery
DX: Z01.818 Encounter for other preprocedural examination (principal); Z01.812 Encounter for preprocedural laboratory examination
CPT/HCPCS: 36415; 80053; 81003; 85027; 85610; 85730; 87070; 93005

== ENCOUNTER 2018-12-18 05:32 | Inpatient (IN) | payer MEDICARE ==
[2018-12-11 10:09] VITALS: BMI 47.3
[~2018-12-18 05:32] MED LIST changes: +ACETAMINOPHEN TAB 500 MG TAB PO ONE; -ALPRAZolam 0.25 MG TAB PO PRN; -ALPRAZolam 0.5 MG TAB PO PRN; -ASPIRIN 325 MG TAB PO STA; +MELOXICAM 7.5 MG TAB PO ONE; -NITROGLYCERIN SL TABS 0.4 MG TAB SUBLINGUAL PRN; -SODIUM CHLORIDE 0.9% 1,000 ML in EMPTY BAG 1 BAG IV ONE; +TRANEXAMIC ACID 1,000 MG in SODIUM CHLORIDE 0.9% 100 ML IVPB ONE; +ceFAZolin 3 GM in SODIUM CHLORIDE 0.9% 100 ML IVPB ONE
[2018-12-18] MEDS ORDERED: ONDANSETRON 4 MG/2 ML VIAL IVP ONE (05:54)
[2018-12-18] MEDS ORDERED: LIDOCAINE 1% 20 ML VIAL (10MG/ML) FOR IV START INTRADERMA PRN (05:54)
[2018-12-18] MEDS ORDERED: ROPIVACAINE 246.25 MG, EPINEPHrine 0.5 MG, KETOROLAC 30 MG, cloNIDine HCL/PF 80 MCG, WA... MISCELLANE ONE ×5 (06:06)
[2018-12-18] MEDS: LACTATED RINGERS 1,000 ML IV SCH (06:21)
[2018-12-18] MEDS ORDERED: ROCURONIUM BROMIDE 10 MG/ML 10 ML VIAL IV ONE (06:57)
[2018-12-18] MEDS ORDERED: HEPARIN SODIUM,PORCINE 10,000 UNIT/ML 1 ML VIAL ONE (06:57)
[2018-12-18] MEDS ORDERED: MIDAZOLAM 2 MG/2 ML VIAL ONE (06:57)
[2018-12-18] MEDS ORDERED: SUCCINYLCHOLINE CHLORIDE VIAL 200 MG/10 ML VIAL IV ONE (06:57)
[2018-12-18] MEDS ORDERED: PROPOFOL 10 MG/ML 20 ML VIAL IV ONE (06:57)
[2018-12-18] MEDS ORDERED: ceFAZolin 3,000 MG in SODIUM CHLORIDE 0.9% IRRIGATIO 3,000 ML IRRIGATION ONE (06:57)
[2018-12-18] MEDS ORDERED: TRANEXAMIC ACID 1,000 MG/10 ML VIAL ONE (06:57)
[2018-12-18] MEDS ORDERED: LIDOCAINE 1% INJ 10MG/ML (20 ML MDV) ONE (06:57)
[2018-12-18] MEDS ORDERED: fentaNYL (PF) 50 MCG/ML 2 ML AMP ONE (06:57)
[2018-12-18] MEDS ORDERED: SODIUM CHLORIDE 0.9% IRRIG 1,000 ML BTL IRRIGATION ONE (06:57)
[2018-12-18] MEDS ORDERED: HYDROmorphone (PF) 1 MG/ML ONE (06:57)
[2018-12-18] MEDS ORDERED: SODIUM CHLORIDE 0.9% 100 ML BAG ONE (06:57)
[2018-12-18] MEDS ORDERED: LACTATED RINGERS 1,000 ML IV ONE (08:26)
--- NOTE | 2018-12-18 08:54 | P.OP ---
Date of Procedure: 12/18/18 Preoperative Diagnosis: Severe osteoarthritis right hip Postoperative Diagnosis: Severe osteoarthritis right hip Procedure(s) Performed: Right total hip arthroplasty with a direct anterior approach Implants: Sebastian and nephew Polarstem size 4 Lateral Sebastian & Nephew R3, 3 hole acetabular shell, 60 mm Sebastian [employer] Nephew reflection 6.5 mm cancellus screw, 20 mm 2 Sebastian [employer] Nephew R3, XLPE 20 acetabular liner Sebastian & Nephew Oxinium femoral head 36 m, +8 All components were press-fit. The articulation is Oxinium on polyethylene. Anesthesia: GETA Surgeon: Edison Linda Septic Tank Installer #1: Paula Donald Estimated Blood Loss (ml): 400 (261 mL returned with Cell Saver) Pathology: other (Femoral head) Condition: stable Disposition: PACU Indications for Procedure: After failure of conservative treatment we discussed the surgical and nonsurgical treatment options at length. Patient wishes to proceed with a total hip arthroplasty with a direct anterior approach. Complications specific to this procedure were discussed at length, including but not limited to infection, leg length discrepancy, dislocation, and nerve injury. Patient is aware of all these complications and informed consent was obtained Operative Findings: The operative findings are consistent with severe osteoarthritis of the right hip Description of Procedure: Patient was seen and evaluated in the preoperative area, consent was reviewed, and the surgical site was marked with a skin marker. Patient was then brought to the operating room and given prophylactic antibiotics intravenously. 1 g of Tranexamic acid was also given. A general anesthetic was administered by the anesthesia department. The patient was then placed on the Bishop table with the bony prominences well-padded. The hip area was then prepped and draped in usual sterile fashion. A universal timeout was then performed, which confirmed the patient's name, surgical site, ALLERGIES, and procedure being performed. Next the incision site was located at 1 cm distal and 1 cm lateral to the anterior superior iliac spine. The skin and subcutaneous tissues were sharply incised. Incision was carefully dissected down to the fascia overlying the tensor fascia eyad muscle. This fascia was then incised in line with the incision. Next, using blunt finger dissection, the tensor fascia eyad muscle was dissected off its investing fascia. The muscle was then carefully retracted laterally with a cobra retractor over the lateral neck of the femur. Next, the circumflex vessels were identified and cauterized using the AquaMantis device. The anterior hip capsule was then exposed. The capsule was then opened and an inverted T fashion. Cobra retractors were then placed intracapsularly. The proximal femur was then v isualized. The femoral neck was then osteotomized appropriate level above the lesser trochanter. Small amount of traction was placed with the Bishop table. A small wedge of bone was then removed from the remaining femoral head. Next, using a corkscrew femoral head was easily removed from the acetabulum. On gross visual inspection, the femoral head had complete loss of articular cartilage in mul tiple periarticular osteophytes. Attention was then turned to the acetabulum. the acetabulum was exposed and any remaining labrum was excised. Sequential reaming of the acetabulum was performed using fluoroscopic guidance. When the appropriate size was reached, a trial was then placed. The position and fit of the trial was checked with fluoroscopy. The trial was then removed. Then, using fluoroscopic guidance, the final implant was impacted at 20 of anteversion and 40 of abduction, and fully seated in the acetabulum. 2 screws were then placed in the acetabulum. Again fluoroscopy was used to check position of the screws. Next, the liner was then impacted, with a 20 elevated liner located in the anterior superior quadrant. Component locking was confirmed. Attention was then directed to the femur. With the aid of the Bishop table, the femur was externally rotated to approximately 130, extended, and abducted under the opposite leg. A side hook was then placed under the proximal femur, and the side hook elevator was used to elevate the proximal femur. Retractors were then placed. A capsular release was performed, as well as a release of the conjoined tendon, which afforded excellent visualization of the proximal femur. Next, a box osteotome was used to lateralize the proximal femur. A merchandise collector was then used to locate the femoral canal. Sequential broaching was then performed with appropriate size which afforded excellent fixation in the proximal femur. A trial was then placed with appropriate head and neck, and the hip was gently reduced with the aid of the Bishop table. Fluoroscopy was then used to check position of the components, as well as to ensure equal leg lengths. The hip was then gently dislocated and the trials were then removed. Final implants were then impacted and the hip was again reduced. Final fluoroscopic x-rays confirmed that the components were in anatomic position, as well as equal leg lengths. The hip was also taken through range of motion, and found to be stable. The hip was then copiously irrigated with antibiotic solution with pulsatile lavage. The hip was then irrigated with Irrisept solution. The soft tissues w ere then injected with a ropivacaine solution, which consisted of 246.25 mg of ropivacaine, 0.5 mg of epinephrine, 30 mg of Toradol, 80 g of clonidine, and 48.45 mL of sterile water, for a total of 100 mL of fluid injected. A second dose of 1 g of Tranexamic acid was also given. the fascia was then closed with 2-0 strata fix suture. The subcutaneous tissue was closed with 3-0 Vicryl. The subcuticular tissue was closed with 3-0 strata fix suture. The skin was then closed with Dermabond glue and a sterile silver dressing. The patient was then transferred to the recovery room in stable con dition. The hair assistant JOSÉ MIGUEL Nunez was required due to the complexity of surgery, and the need for skilled surgical garment inspector for positioning, draping, exposure, retraction, and closure of the wound.
[2018-12-18] MEDS ORDERED: DIAZEPAM 5 MG TAB PO PRN (09:01)
[2018-12-18] MEDS ORDERED: HYDROmorphone 0.5 MG/0.5 ML SYRINGE IVP PRN ×3 (09:01)
[2018-12-18] MEDS ORDERED: NALOXONE 0.4 MG/ML 1 ML VIAL IV PRN (09:01)
[2018-12-18] MEDS ORDERED: hydrOXYzine PAMOATE 25 MG CAP PO PRN (09:01)
[2018-12-18] MEDS ORDERED: HYDROcodone/APAP 5-325MG 1 EACH TAB PO PRN (09:01)
[2018-12-18] MEDS ORDERED: MAGNESIUM HYDROXIDE 2,400 MG/10 ML CUP PO PRN (09:01)
[2018-12-18] MEDS ORDERED: ONDANSETRON 4 MG/2 ML VIAL IVP PRN (09:01)
[2018-12-18] MEDS: HYDROmorphone 0.5 MG/0.5 ML SYRINGE IVP PRN ×4 (09:12→09:48)
--- NOTE | 2018-12-18 09:24 | FL ---
Fluoroscopy INDICATION: Pain FINDINGS: Fluoroscopy time: 1 minute 5 seconds. Images obtained: 2. IMPRESSIONS: 1. Documentation of fluoroscopy.
--- NOTE | 2018-12-18 09:29 | XR ---
EXAMINATION TYPE: XR Hip Limited RT DATE OF EXAM: 12/18/2018 COMPARISON: None HISTORY: Postop right hip replacement TECHNIQUE: Single AP right hip FINDINGS: Right femoral prosthesis has been placed. Acetabular component is present. Images are under penetrated. No obvious fractures are identified. IMPRESSION: 1. No fracture post right hip replacement.
[2018-12-18] MEDS: SODIUM CHLORIDE 0.9% 1,000 ML IV SCH ×2 (10:14→22:58)
[2018-12-18] MEDS: METOPROLOL TARTRATE 50 MG TAB PO SCH (10:19)
--- NOTE | 2018-12-18 12:16 | P.CONS ---
History of Present Illness - Reason for Consult Consult date: 12/18/18 Medical management - Chief Complaint Right total hip arthroplasty with a direct anterior approach - History of Present Illness Patient is a 73-year-old male with a known history of coronary artery disease status post CABG triple vessel in 1997, recent cardiac catheterization in 2015 with stent placement, hypertension, hyperlipidemia, obstructive sleep apnea on CPAP at home and morbid obesity with BMI 47.4 was admitted to the hospital for elective right hip arthroplasty. Patient has been having worsening right hip pain for more than a year. Currently patient is status post Right total hip arthroplasty with a direct anterior approach. Patient is still drowsy likely due to anesthesia and is also on portable CPAP machine. Patient denied any complaints of chest pain or worsening shortness of breath. Patient could not give any more history currently. Most of the history was taken from the medical records and family at bedside. X-ray right hip showed no fracture post right hip replacement. Patient is currently on Plavix at home. 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 History of Any Multi-Drug Resistant Organisms: MRSA Year Discovered:: 2011 MDRO Source:: back Past Surgical History: Coronary Bypass/CABG, Heart Catheterization, Heart Catheterization With Stent, Hernia Repair Additional Past Surgical History / Comment(s): 12/25/15 PTCA with stent to OM-1, CABG 1997 triple vessel, cardiac caths, 03/07/14 cardiac cath with stent. colonoscopy, L wrist ganglion cystectomy, umbilical hernia repair, testicular and abdominal hernia repair Past Anesthesia/Blood Transfusion Reactions: No Reported Reaction Additional Past Anesthesia/Blood Transfusion Reaction / Comm: at [facility] was told he was "alittle rough coming out " of anesthesia. Date of Last Stent Placement:: 12/25/15 Past Psychological History: No Psychological Hx Reported Additional Psychological History / Comment(s): . Smoking Status: Former smoker Past Alcohol Use History: Rare Additional Past Alcohol Use History / Comment(s): STARTED SMOKING AT AGE 17-QUIT IN 1973 SMOKED 1PPD Past Drug Use History: Marijuana Additional Drug Use History / Comment(s): occasional marijuana use - Past Family History Father Family Medical History: Cancer Additional Family Medical History / Comment(s): Father of cancer which started in his leg and went to his lungs. He was 82 yrs old. Mother Family Medical History: Musculoskeletal Disorder, Neurologic Disorder Additional Family Medical History / Comment(s): Mother had MS which pt states was cured. She also suffered from migraines. Medications and Allergies Home Medications Medication Instructions Recorded Confirmed Type Metoprolol Tartrate [Lopressor] 50 mg PO QAM 03/05/14 12/18/18 History Clopidogrel [Plavix] 75 mg PO QAM 04/18/17 12/18/18 History Turmeric Root Extract [Turmeric] 500 mg PO DAILY 04/28/18 12/18/18 History Ubidecarenone [Co Q-10] 400 mg PO DAILY 04/29/18 12/18/18 History Acetaminophen Tab [Tylenol Tab] 500 mg PO Q6H PRN 12/11/18 12/18/18 History Atorvastatin [Lipitor] 40 mg PO DAILY 12/11/18 12/18/18 History Lisinopril-Hctz 20-25 mg 0.5 tab PO DAILY 12/11/18 12/18/18 History [Zestoretic 20-25] Allergies Allergy/AdvReac Type Severity Reaction Status Date / Time No Known Allergies Allergy Verified 12/18/18 09:19 Physical Exam Vitals: Vital Signs Temp Pulse Pulse Pulse Resp BP BP 12/18/18 10:00 97.7 F 81 18 147/98 12/18/18 09:39 82 20 151/67 12/18/18 09:24 74 20 156/73 12/18/18 09:09 73 20 133/62 12/18/18 08:54 97.6 F 82 20 142/72 12/18/18 06:07 98.2 F 56 L 16 127/65 Pulse Ox 12/18/18 10:00 95 12/18/18 09:39 95 12/18/18 09:24 95 12/18/18 09:09 98 12/18/18 08:54 97 12/18/18 06:07 93 L Intake and Output 12/17/18 12/18/18 12/18/18 22:59 06:59 14:59 Intake Total 1001 700 Output Total 400 Balance 1001 300 Intake: IV 1001 700 Output: Estimated Blood Loss 400 PHYSICAL EXAMINATION: Patient is lying in the bed comfortably, no acute distress, awake alert and oriented. Drowsy. HEENT: Normocephalic. Neck is supple. Pupils reactive. Nostrils clear. Oral cavity is moist. Ears reveal no drainage. Neck reveals no JVD, carotid bruits, or thyromegaly. CHEST EXAMINATION: Trachea is central. Symmetrical expansion. Bibasilar diminished air entry. Lung hopper clear to auscultation and percussion. CARDIAC: Normal S1, S2 with no gallops. No murmurs ABDOMEN: Soft. Bowel sounds normal. No organomegaly. No abdominal bruits. Extremities: reveal no edema. No clubbing or cyanosis Neurologically awake, alert drowsy and lethargic., with well-coordinated movements. No focal deficits noted Skin: No rash or skin lesions. Psychiatric: Could not be assessed completely. Musculoskeletal: No joint swelling or deformity. Right hip surgical site intact. Assessment and Plan Assessment: Status post right total hip arthroplasty anterior approach. 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 Plan: Patient will be continued on Plavix and aspirin was added. Continue with dual antiplatelet therapy for the next 4 weeks followed by Plavix as his current regimen. Continue with home blood pressure medications and CPAP as needed. Duo nebs when necessary for short of breath and wheezing. Pain management and bowel regimen. Further recommendations based on the clinical course. We will continue to follow with you. Thank you for your consult. Time with Patient: Greater than 30
[2018-12-18 15:01] LABS: Basophils % (A) 0 %; Eosinophils % (A) 0 %; HCT 45.3 % (39.0-53.0); HGB 14.7 gm/dL (13.0-17.5); Lymphocytes # (A) 0.7 k/uL (1.0-4.8); Lymphocytes % (A) 3 %; MCH 29.3 pg (25.0-35.0); MCHC 32.4 g/dL (31.0-37.0); MCV 90.4 fL (80.0-100.0); Mean Platelet Volume 7.8; Monocytes % (A) 5 %; Neutrophils # (A) 17.6 k/uL (1.3-7.7); Neutrophils % (A) 89 %; Platelet Count 209 k/uL (150-450); RBC 5.01 m/uL (4.30-5.90); RDW 14.7 % (11.5-15.5); WBC 19.7 k/uL (3.8-10.6)
[2018-12-18 15:05] LABS: African American GFR (CKD) >90 (>60 ml/min/1.73 sqM); Anion Gap 8 mmol/L; Blood Urea Nitrogen 19 mg/dL (9-20); Calcium 8.7 mg/dL (8.4-10.2); Carbon Dioxide 25 mmol/L (22-30); Chloride 107 mmol/L (98-107); Glucose 166 mg/dL (74-99); Non-African American GFR(CKD) 80 (>60 ml/min/1.73 sqM); Potassium 4.6 mmol/L (3.5-5.1); Sodium 140 mmol/L (137-145)
[2018-12-18] MEDS: HYDROcodone/APAP 5-325MG 1 EACH TAB PO PRN ×2 (17:17→22:56)
[2018-12-18] MEDS ORDERED: SENNOSIDES-DOCUSATE SODIUM 1 EACH TAB PO SCH (21:00)
[2018-12-19] MEDS: LACTATED RINGERS 1,000 ML IV SCH (04:14)
[2018-12-19 07:39] LABS: Basophils % (A) 0 %; Eosinophils # (A) 0.1 k/uL (0-0.7); Eosinophils % (A) 1 %; HCT 38.8 % (39.0-53.0); HGB 12.7 gm/dL (13.0-17.5); Lymphocytes # (A) 0.9 k/uL (1.0-4.8); Lymphocytes % (A) 10 %; MCH 29.4 pg (25.0-35.0); MCHC 32.8 g/dL (31.0-37.0); MCV 89.7 fL (80.0-100.0); Mean Platelet Volume 7.7; Monocytes # (A) 0.7 k/uL (0-1.0); Monocytes % (A) 8 %; Neutrophils # (A) 6.6 k/uL (1.3-7.7); Neutrophils % (A) 76 %; Platelet Count 165 k/uL (150-450); RBC 4.33 m/uL (4.30-5.90); RDW 13.9 % (11.5-15.5); WBC 8.6 k/uL (3.8-10.6)
[2018-12-19 07:43] VITALS: BP 136/74; PULSE 77; RESP 15; TEMP 98.6
[2018-12-19] MEDS: METOPROLOL TARTRATE 50 MG TAB PO SCH (08:43)
[2018-12-19] MEDS ORDERED: ATORVASTATIN 40 MG TAB PO SCH (09:00)
[2018-12-19] MEDS ORDERED: CLOPIDOGREL 75 MG TAB PO SCH (09:00)
[2018-12-19] MEDS ORDERED: MELOXICAM 7.5 MG TAB PO SCH (09:00)
[2018-12-19] MEDS ORDERED: ASPIRIN 81 MG PO SCH (09:00)
--- NOTE | 2018-12-19 09:30 | P.DS ---
Providers Date of admission: 12/18/18 05:32 Expected date of discharge: 12/19/18 Attending physician: Edison Linda Consults: 12/18/18 09:01 Consult Physician Routine Consulting Provider: Indira Huffman Consult Reason/Comments: medical management and anticoagulation Do you want consulting provider notified?: Yes Primary care physician: Gianni Greenfield - Discharge Diagnosis(es) (1) Osteoarthritis of right hip Current Visit: Yes Status: Acute (2) S/P total hip arthroplasty Current Visit: Yes Status: Acute Hospital Course: This is a 73-year-old male with known history of degenerative arthritis of the right hip. The patient presents for evaluation. After discussion and consideration patient elects to proceed with total hip arthroplasty. The patient is seen preoperatively by Dr. Linda and medically cleared for surgery by their primary care physician. Patient is admitted to [facility] on 12/18/2018 for total hip arthroplasty. The procedures performed without complication or sequelae. The patient is doing well postoperatively. Labs and vital signs are stable on day of discharge. On day of discharge patient's hip incision is healing well. There is minimal erythema. There is no drainage noted at this time. There is minimal soft tissue swelling to the hip and thigh. Patient has full foot and ankle motion without difficulty or pain. Calf is soft and nontender to palpation. Neurovascular status to the right lower extremity is intact. Patient is discharged home in good condition. Opioid start talking form is reviewed and signed at patient bedside. Recommend Plavix and aspirin 81 mg daily for DVT prophylaxis. Patient states that he has these medications at home. Please see med rec for accurate list of home medications. Plan - Discharge Summary Discharge Rx Participant: Yes New Discharge Prescriptions: New HYDROcodone/APAP 5-325MG [[place] 5-325] 1 - 2 tab PO Q6HR PRN #56 tab PRN Reason: Pain Sennosides [Senokot] 1 tab PO BID #60 tablet No Action Metoprolol Tartrate [Lopressor] 50 mg PO QAM Clopidogrel [Plavix] 75 mg PO QAM Turmeric Root Extract [Turmeric] 500 mg PO DAILY Ubidecarenone [Co Q-10] 400 mg PO DAILY Lisinopril-Hctz 20-25 mg [Zestoretic 20-25] 0.5 tab PO DAILY Atorvastatin [Lipitor] 40 mg PO DAILY Acetaminophen Tab [Tylenol Tab] 500 mg PO Q6H PRN PRN Reason: Pain Discharge Medication List Metoprolol Tartrate [Lopressor] 50 mg PO QAM 03/05/14 [History] Clopidogrel [Plavix] 75 mg PO QAM 04/18/17 [History] Turmeric Root Extract [Turmeric] 500 mg PO DAILY 04/28/18 [History] Ubidecarenone [Co Q-10] 400 mg PO DAILY 04/29/18 [History] Acetaminophen Tab [Tylenol Tab] 500 mg PO Q6H PRN 12/11/18 [History] Atorvastatin [Lipitor] 40 mg PO DAILY 12/11/18 [History] Lisinopril-Hctz 20-25 mg [Zestoretic 20-25] 0.5 tab PO DAILY 12/11/18 [History] HYDROcodone/APAP 5-325MG [[place] 5-325] 1 - 2 tab PO Q6HR PRN #56 tab 12/19/18 [Rx] Sennosides [Senokot] 1 tab PO BID #60 tablet 12/19/18 [Rx] Follow up Appointment(s)/Referral(s): Edison Linda DO [Doctor of Osteopathic Medicine] - 2 Weeks Activity/Diet/Wound Care/Special Instructions: Weightbearing as tolerated with walker. Leave dressing intact. Dressing may be removed by home care nurse or by patient in 10 days. May shower with dressing on. Recommend use of compression stockings for at least 2 weeks during the day. May remove at night. Recommend Plavix 75mg and aspirin 81 mg daily for DVT prophylaxis. Please follow-up with [facility] in 2 weeks and call with any questions or concerns, . Discharge Disposition: HOME WITH HOME HEALTH SERVICES
--- NOTE | 2018-12-20 14:16 | P.PN ---
Subjective Progress Note Date: 12/19/18 Principal diagnosis: Right total hip arthroplasty Patient is a 73-year-old male with a known history of coronary artery disease status post CABG triple vessel in 1997, recent cardiac catheterization in 2016 with stent placement, hypertension, hyperlipidemia, obstructive sleep apnea on CPAP at home and morbid obesity with BMI 47.4 was admitted to the hospital for elective right hip arthroplasty. Patient has been having worsening right hip pain for more than a year. Currently patient is status post Right total hip arthroplasty with a direct anterior approach. Patient is still drowsy likely due to anesthesia and is also on portable CPAP machine. Patient denied any complaints of chest pain or worsening shortness of breath. Patient could not give any more history currently. Most of the history was taken from the medical records and family at bedside. X-ray right hip showed no fracture post right hip replacement. Patient is currently on Plavix at home. 12/19/2018 Patient denied any complex of chest pain or shortness of breath. No fever no chills. No headache or dizziness or tenderness. Right hip pain is better today. Patient will be continued on anti-correlation the form of aspirin and Plavix for the next 4 weeks and followed by Ranjit daily as per his current home regimen. Patient is able to sit in the chair and part spreading in physical therapy. Juan Miguel menon is being discharged home today. Patient is saturating well on room air. No complaints of breathing issues. Discharge medication reconsideration was done. Objective - Vital Signs Vital signs: Vital Signs Temp 98.6 F 12/19/18 07:00 Pulse 77 12/19/18 07:00 Resp 15 12/19/18 07:00 BP 136/74 12/19/18 07:00 Pulse Ox 93 L 12/19/18 07:00 Intake & Output 12/18/18 12/19/18 12/19/18 18:59 06:59 18:59 Intake Total 840 200 Output Total 775 300 Balance 65 -300 200 Intake: IV 700 Intake, IV Titration 140 Amount Sodium Chloride 0.9% 1, 140 000 ml @ 70 mls/hr IV . [id number] [facility] Rx#:[id number] Oral 200 Output: Urine 375 300 Estimated Blood Loss 400 Other: Voiding Method Urinal # Voids 1 - Exam PHYSICAL EXAMINATION: Patient is lying in the bed comfortably, no acute distress, awake alert and oriented. Drowsy. HEENT: Normocephalic. Neck is supple. Pupils reactive. Nostrils clear. Oral cavity is moist. Ears reveal no drainage. Neck reveals no JVD, carotid bruits, or thyromegaly. CHEST EXAMINATION: Trachea is central. Symmetrical expansion. Lung hopper clear to auscultation and percussion. CARDIAC: Normal S1, S2 with no gallops. No murmurs ABDOMEN: Soft. Bowel sounds normal. No organomegaly. No abdominal bruits. Extremities: reveal no edema. No clubbing or cyanosis Neurologically awake, alert drowsy and lethargic., with well-coordinated movements. No focal deficits noted Skin: No rash or skin lesions. Psychiatric: Could not be assessed completely. Musculoskeletal: No joint swelling or deformity. Right hip surgical site intact. - Labs CBC & Chem 7: 12/19/18 06:35 12/18/18 14:41 Labs: Abnormal Lab Results - Last 24 Hours (Table) 12/18/18 12/18/18 12/19/18 Range/Units 14:41 14:41 06:35 WBC 19.7 H (3.8-10.6) k/uL Hgb 12.7 L (13.0-17.5) gm/dL Hct 38.8 L (39.0-53.0) % Neutrophils # 17.6 H (1.3-7.7) k/uL Lymphocytes # 0.7 L 0.9 L (1.0-4.8) k/uL Glucose 166 H (74-99) mg/dL Assessment and Plan Assessment: Status post right total hip arthroplasty anterior approach. 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 Plan: Patient will be continued on Plavix and aspirin was added. Continue with dual antiplatelet therapy for the next 4 weeks followed by Plavix as his current regimen. Continue with home blood pressure medications and CPAP as needed. Duo nebs when necessary for short of breath and wheezing. Pain management and bowel regimen. DVT prophylaxis. Patient is being discharged home today. Time with Patient: Greater than 30
== END 2018-12-19 12:53 | disposition home health service (06) | DRG 470 ==
LOC: 2ORMAIN 05:32 → 4SSUR 08:53
PROVIDERS: ADMIT Orthopaedic Surgery; ATTEND Orthopaedic Surgery
PROC: 30233N0 Transfusion of Autologous Red Blood Cells into Peripheral Vein, Percutaneous Approach (ICD-10-PCS; 2018-12-18)
PROC: 5A09357 Assistance with Respiratory Ventilation, Less than 24 Consecutive Hours, Continuous Positive Airway Pressure (ICD-10-PCS; 2018-12-18)
PROC: 0SR906A Replacement of Right Hip Joint with Oxidized Zirconium on Polyethylene Synthetic Substitute, Uncemented, Open Approach (ICD-10-PCS; principal; 2018-12-18 07:00)
DX: M16.11 Unilateral primary osteoarthritis, right hip (principal); Z68.42 Body mass index [BMI] 45.0-49.9, adult; E66.01 Morbid (severe) obesity due to excess calories; I25.10 Atherosclerotic heart disease of native coronary artery without angina pectoris; I10 Essential (primary) hypertension; E78.5 Hyperlipidemia, unspecified; G47.33 Obstructive sleep apnea (adult) (pediatric); K57.90 Diverticulosis of intestine, part unspecified, without perforation or abscess without bleeding; K21.9 Gastro-esophageal reflux disease without esophagitis; D72.829 Elevated white blood cell count, unspecified; H54.62 Unqualified visual loss, left eye, normal vision right eye; Z79.02 Long term (current) use of antithrombotics/antiplatelets; Z79.899 Other long term (current) drug therapy; Z95.1 Presence of aortocoronary bypass graft; Z86.14 Personal history of Methicillin resistant Staphylococcus aureus infection; Z87.891 Personal history of nicotine dependence; Z95.5 Presence of coronary angioplasty implant and graft; Z99.89 Dependence on other enabling machines and devices; Z80.1 Family history of malignant neoplasm of trachea, bronchus and lung; Z80.9 Family history of malignant neoplasm, unspecified; Z84.89 Family history of other specified conditions; Z82.0 Family history of epilepsy and other diseases of the nervous system
CPT/HCPCS: 73501; 80048; 85025; 86850; 86891; 86900; 86901; 88300

== ENCOUNTER 2019-02-21 12:42 | Emergency (ER) | payer MEDICARE ==
[2019-02-21] MEDS ORDERED: MORPHINE SULFATE 4 MG/ML SYRINGE IV STA ×2 (13:45→16:45)
--- NOTE | 2019-02-21 13:52 | ED ---
Fall HPI - General Chief Complaint: Fall Stated Complaint: Fall, back pain Time Seen by Provider: 02/21/19 13:36 Source: patient Mode of arrival: wheelchair - History of Present Illness Initial Comments: This 73-year-old white male presents with a complaint of a fall. He states that this occurred shortly prior to arrival. He was apparently going down some steps when his foot slipped out from underneath him and he landed directly on his mid back region on the corner of a step. He denies falling down multiple steps. He does complain of some pain to that area as well as some swelling. He is on Plavix but he denies any aspirin or other blood thinners. He did not hit his head or develop any neck pain. There is no anterior abdominal pain. There is no chest pain or shortness of breath. He did not take anything at home for pain. He was able to ambulate afterwards. He states that the pain is worse with any movement. He also had a right hip replaced 2 months ago. He denies any pain to the hip region. He denies any paresthesias or weakness to his lower extremities. No other complaints or modifying factors. - Related Data Home Medications Medication Instructions Recorded Confirmed Clopidogrel [Plavix] 75 mg PO QAM 04/18/17 02/21/19 Atorvastatin [Lipitor] 40 mg PO DAILY 12/11/18 02/21/19 Lisinopril-Hctz 20-25 mg 0.5 tab PO DAILY 12/11/18 02/21/19 [Zestoretic 20-25] Previous Rx's Medication Instructions Recorded Hydrocodone/Acetaminophen [[place] 1 - 2 each PO Q4HR PRN #15 tab 02/21/19 5-325] Allergies Allergy/AdvReac Type Severity Reaction Status Date / Time No Known Allergies Allergy Verified 02/21/19 14:42 Review of Systems ROS Statement: Those systems with pertinent positive or pertinent negative responses have been documented in the HPI. ROS Other: All systems not noted in ROS Statement are negative. 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 History of Any Multi-Drug Resistant Organisms: MRSA Date of last positivie culture/infection: 2011 MDRO Source:: back Past Surgical History: Coronary Bypass/CABG, Heart Catheterization, Heart Catheterization With Stent, Hernia Repair Additional Past Surgical History / Comment(s): 12/25/15 PTCA with stent to OM-1, CABG 1997 triple vessel, cardiac caths, 03/07/14 cardiac cath with stent. colonoscopy, L wrist ganglion cystectomy, umbilical hernia repair, testicular and abdominal hernia repair Past Anesthesia/Blood Transfusion Reactions: No Reported Reaction Additional Past Anesthesia/Blood Transfusion Reaction / Comment(s): at [facility] was told he was "alittle rough coming out " of anesthesia. Date of Last Stent Placement:: 12/25/15 Past Psychological History: No Psychological Hx Reported Smoking Status: Former smoker Past Alcohol Use History: Rare Past Drug Use History: Marijuana - Past Family History Father Family Medical History: Cancer Additional Family Medical History / Comment(s): Father of cancer which started in his leg and went to his lungs. He was 82 yrs old. Mother Family Medical History: Musculoskeletal Disorder, Neurologic Disorder Additional Family Medical History / Comment(s): Mother had MS which pt states was cured. She also suffered from migraines. General Exam - General Exam Comments Initial Comments: GENERAL: The patient is well nourished and well hydrated. VITAL SIGNS: Heart rate, blood pressure, respiratory rate reviewed as recorded in nurse's notes. EYES: Pupils are round and reactive. Extraocular movements are intact. No conjunctival / lid redness or swelling. ENT: No external evidence of injury, swelling, or ecchymosis. Airway is patent. Throat is clear. NECK: Nontender. No swelling or evidence of injury. No subcutaneous emphysema. Trachea is midline. No thyroid mass. HEART: Regular rate and rhythm. Good peripheral pulses. LUNGS/CHEST: Breath sounds clear and equal bilaterally. No rales, rhonchi, or wheezes. No ecchymosis, subcutaneous emphysema, or tenderness. ABDOMEN: Abdomen soft without tenderness. No palpable masses or organomegaly. No peritoneal signs. No abdominal wall swelling or ecchymosis. EXTREMITIES: No extremity tenderness. Normal muscle tone and function. There is tenderness and swelling present to the back at approximately the mid to lower back bilaterally in the spinal musculature as well as over the midline. NEUROLOGIC: Sensation is grossly intact. Cranial nerve exam reveals face is symmetrical, tongue is midline, speech is clear. SKIN: No abrasions or ecchymosis is noted. No induration or masses noted. PSYCHIATRIC: Alert and oriented. Appropriate behavior and judgment. Limitations: no limitations Course Vital Signs 02/21/19 13:26 Temperature 98.0 F Pulse Rate 44 L Respiratory 18 Rate Blood Pressure 186/76 O2 Sat by Pulse 96 Oximetry Medical Decision Making - Medical Decision Making The patient was seen and examined. All diagnostics are reviewed. EKG does show a sinus rhythm at a rate of 61. There is occasional PAC noted. There is evidence of a left axis deviation and right bundle-branch block. There is associated ST-T wave changes related to the right bundle-branch block. The QRS duration is 138, CT intervals 168, and the QTC intervals 450. He does have an IV established and received 4 mg of morphine IV. The nursing staff did call a trauma as the patient is on the blood thinner of Plavix and over 60 years old. I saw the patient immediately after arrival and requested that the trauma be downgraded but was told by the business operations coordinator, Marisol, that I do not have the authority to downgraded a trauma. A call was made to the trauma surgeon on- call, Dr. Hull, and he is currently scrubbed in to a surgery. The OR staff will inform him of the trauma patient. The patient has no chest injury or pelvic injury and it is not felt as though any x-rays of the chest or pelvis are necessary. However, I have been informed by ER director that since the patient is a trauma patient that these are required and therefore a x-ray of the chest and pelvis are ordered even though there are no injuries to this area. The pelvis x-ray does show postoperative changes of recent right hip surgery but no other acute processes. The x-ray of the chest does not show any acute process. The patient also does have a computed tomography scan completed of the abdomen and pelvis region and this does show a 7 cm x 9 cm hematoma to the subcutaneous tissues in the back. There is no fracture or acute osseous or intra-abdominal injuries identified. The laboratory does show some mild hyperglycemia as well as mild leukocytosis. The patient does receive a second dose of morphine intravenously with improved relief. Overall, it is felt as though he is stable for discharge. His diagnosis was discussed with him in detail and he leaves in no distress. - Lab Data Result diagrams: 02/21/19 13:51 02/21/19 13:51 Lab Results 02/21/19 02/21/19 02/21/19 Range/Units 13:51 13:51 13:51 WBC 13.9 H (3.8-10.6) k/uL RBC 5.46 (4.30-5.90) m/uL Hgb 15.2 (13.0-17.5) gm/dL Hct 49.2 (39.0-53.0) % MCV 90.2 (80.0-100.0) fL MCH 27.8 (25.0-35.0) pg MCHC 30.9 L (31.0-37.0) g/dL RDW 13.7 (11.5-15.5) % Plt Count 246 (150-450) k/uL Neutrophils % 89 % Lymphocytes % 5 % Monocytes % 4 % Eosinophils % 0 % Basophils % 1 % Neutrophils # 12.3 H (1.3-7.7) k/uL Lymphocytes # 0.7 L (1.0-4.8) k/uL Monocytes # 0.5 (0-1.0) k/uL Eosinophils # 0.1 (0-0.7) k/uL Basophils # 0.1 (0-0.2) k/uL PT 10.8 (9.0-12.0) sec INR 1.0 (<1.2) APTT 25.8 (22.0-30.0) sec Sodium 141 (137-145) mmol/L Potassium 4.7 (3.5-5.1) mmol/L Chloride 105 (98-107) mmol/L Carbon Dioxide 26 (22-30) mmol/L Anion Gap 10 mmol/L BUN 15 (9-20) mg/dL Creatinine 0.92 (0.66-1.25) mg/dL Est GFR (CKD-EPI)AfAm >90 (>60 ml/min/1.73 sqM) Est GFR (CKD-EPI)NonAf 82 (>60 ml/min/1.73 sqM) Glucose 183 H (74-99) mg/dL Plasma Lactic Acid Sagar (0.7-2.0) mmol/L Calcium 9.2 (8.4-10.2) mg/dL Total Bilirubin 0.7 (0.2-1.3) mg/dL AST 25 (17-59) U/L ALT 32 (21-72) U/L Alkaline Phosphatase 142 H (38-126) U/L Total Creatine Kinase (55-170) U/L CK-MB (CK-2) (0.0-2.4) ng/mL CK-MB (CK-2) Rel Index Troponin I (0.000-0.034) ng/mL Total Protein 7.0 (6.3-8.2) g/dL Albumin 3.9 (3.5-5.0) g/dL Amylase 45 (30-110) U/L Lipase 55 (23-300) U/L Urine Color Urine Appearance (Clear) Urine pH (5.0-8.0) Ur Specific [place] (1.001-1.035) Urine Protein (Negative) Urine Glucose (UA) (Negative) Urine Ketones (Negative) Urine Blood (Negative) Urine Nitrite (Negative) Urine Bilirubin (Negative) Urine Urobilinogen (<2.0) mg/dL Ur Leukocyte Esterase (Negative) Urine Opiates Screen (NotDetected) Ur Oxycodone Screen (NotDetected) Urine Methadone Screen (NotDetected) Ur Propoxyphene Screen (NotDetected) Ur Barbiturates Screen (NotDetected) U Tricyclic Antidepress (NotDetected) Ur Phencyclidine Scrn (NotDetected) Ur Amphetamines Screen (NotDetected) U Methamphetamines Scrn (NotDetected) U Benzodiazepines Scrn (NotDetected) Urine Cocaine Screen (NotDetected) U Marijuana (THC) Screen (NotDetected) Serum Alcohol <10 mg/dL Blood Type Blood Type Recheck Bld Type Recheck Status Antibody Screen Spec Expiration Date 02/21/19 02/21/19 02/21/19 Range/Units 13:51 13:51 14:50 WBC (3.8-10.6) k/uL RBC (4.30-5.90) m/uL Hgb (13.0-17.5) gm/dL Hct (39.0-53.0) % MCV (80.0-100.0) fL MCH (25.0-35.0) pg MCHC (31.0-37.0) g/dL RDW (11.5-15.5) % Plt Count (150-450) k/uL Neutrophils % % Lymphocytes % % Monocytes % % Eosinophils % % Basophils % % Neutrophils # (1.3-7.7) k/uL Lymphocytes # (1.0-4.8) k/uL Monocytes # (0-1.0) k/uL Eosinophils # (0-0.7) k/uL Basophils # (0-0.2) k/uL PT (9.0-12.0) sec INR (<1.2) APTT (22.0-30.0) sec Sodium (137-145) mmol/L Potassium (3.5-5.1) mmol/L Chloride (98-107) mmol/L Carbon Dioxide (22-30) mmol/L Anion Gap mmol/L BUN (9-20) mg/dL Creatinine (0.66-1.25) mg/dL Est GFR (CKD-EPI)AfAm (>60 ml/min/1.73 sqM) Est GFR (CKD-EPI)NonAf (>60 ml/min/1.73 sqM) Glucose (74-99) mg/dL Plasma Lactic Acid Sagar (0.7-2.0) mmol/L Calcium (8.4-10.2) mg/dL Total Bilirubin (0.2-1.3) mg/dL AST (17-59) U/L ALT (21-72) U/L Alkaline Phosphatase (38-126) U/L Total Creatine Kinase 130 (55-170) U/L CK-MB (CK-2) 1.8 (0.0-2.4) ng/mL CK-MB (CK-2) Rel Index 1.4 Troponin I <0.012 (0.000-0.034) ng/mL Total Protein (6.3-8.2) g/dL Albumin (3.5-5.0) g/dL Amylase (30-110) U/L Lipase (23-300) U/L Urine Color Light Yellow Urine Appearance Clear (Clear) Urine pH 5.5 (5.0-8.0) Ur Specific [place] 1.020 (1.001-1.035) Urine Protein Trace H (Negative) Urine Glucose (UA) Negative (Negative) Urine Ketones Negative (Negative) Urine Blood Negative (Negative) Urine Nitrite Negative (Negative) Urine Bilirubin Negative (Negative) Urine Urobilinogen <2.0 (<2.0) mg/dL Ur Leukocyte Esterase Negative (Negative) Urine Opiates Screen Detected H (NotDetected) Ur Oxycodone Screen Not Detected (NotDetected) Urine Methadone Screen Not Detected (NotDetected) Ur Propoxyphene Screen Not Detected (NotDetected) Ur Barbiturates Screen Not Detected (NotDetected) U Tricyclic Antidepress Not Detected (NotDetected) Ur Phencyclidine Scrn Not Detected (NotDetected) Ur Amphetamines Screen Not Detected (NotDetected) U Methamphetamines Scrn Not Detected (NotDetected) U Benzodiazepines Scrn Not Detected (NotDetected) Urine Cocaine Screen Not Detected (NotDetected) U Marijuana (THC) Screen Detected H (NotDetected) Serum Alcohol mg/dL Blood Type A Positive Blood Type Recheck A Pos Bld Type Recheck Status No Antibody Screen NEGATIVE Spec Expiration Date 02/24/19 5612 02/21/19 Range/Units 15:45 WBC (3.8-10.6) k/uL RBC (4.30-5.90) m/uL Hgb (13.0-17.5) gm/dL Hct (39.0-53.0) % MCV (80.0-100.0) fL MCH (25.0-35.0) pg MCHC (31.0-37.0) g/dL RDW (11.5-15.5) % Plt Count (150-450) k/uL Neutrophils % % Lymphocytes % % Monocytes % % Eosinophils % % Basophils % % Neutrophils # (1.3-7.7) k/uL Lymphocytes # (1.0-4.8) k/uL Monocytes # (0-1.0) k/uL Eosinophils # (0-0.7) k/uL Basophils # (0-0.2) k/uL PT (9.0-12.0) sec INR (<1.2) APTT (22.0-30.0) sec Sodium (137-145) mmol/L Potassium (3.5-5.1) mmol/L Chloride (98-107) mmol/L Carbon Dioxide (22-30) mmol/L Anion Gap mmol/L BUN (9-20) mg/dL Creatinine (0.66-1.25) mg/dL Est GFR (CKD-EPI)AfAm (>60 ml/min/1.73 sqM) Est GFR (CKD-EPI)NonAf (>60 ml/min/1.73 sqM) Glucose (74-99) mg/dL Plasma Lactic Acid Sagar 1.9 (0.7-2.0) mmol/L Calcium (8.4-10.2) mg/dL Total Bilirubin (0.2-1.3) mg/dL AST (17-59) U/L ALT (21-72) U/L Alkaline Phosphatase (38-126) U/L Total Creatine Kinase (55-170) U/L CK-MB (CK-2) (0.0-2.4) ng/mL CK-MB (CK-2) Rel Index Troponin I (0.000-0.034) ng/mL Total Protein (6.3-8.2) g/dL Albumin (3.5-5.0) g/dL Amylase (30-110) U/L Lipase (23-300) U/L Urine Color Urine Appearance (Clear) Urine pH (5.0-8.0) Ur Specific [place] (1.001-1.035) Urine Protein (Negative) Urine Glucose (UA) (Negative) Urine Ketones (Negative) Urine Blood (Negative) Urine Nitrite (Negative) Urine Bilirubin (Negative) Urine Urobilinogen (<2.0) mg/dL Ur Leukocyte Esterase (Negative) Urine Opiates Screen (NotDetected) Ur Oxycodone Screen (NotDetected) Urine Methadone Screen (NotDetected) Ur Propoxyphene Screen (NotDetected) Ur Barbiturates Screen (NotDetected) U Tricyclic Antidepress (NotDetected) Ur Phencyclidine Scrn (NotDetected) Ur Amphetamines Screen (NotDetected) U Methamphetamines Scrn (NotDetected) U Benzodiazepines Scrn (NotDetected) Urine Cocaine Screen (NotDetected) U Marijuana (THC) Screen (NotDetected) Serum Alcohol mg/dL Blood Type Blood Type Recheck Bld Type Recheck Status Antibody Screen Spec Expiration Date Disposition Clinical Impression: Fall, Contusion, back, Traumatic hematoma of lower back, Hypertension Disposition: HOME SELF-CARE Condition: Good Instructions (If sedation given, give patient instructions): Fall Prevention for Older Adults (ED), Hematoma (ED), Low Back Strain (ED) Prescriptions: Hydrocodone/Acetaminophen [[place] 5-325] 1 - 2 each PO Q4HR PRN #15 tab PRN Reason: Pain Is patient prescribed a controlled substance at d/c from ED?: Yes When asked, does pt state using other controlled substances?: No If prescribed controlled substance>3 days was MAPS reviewed?: Prescribed <3 Days Referrals: Gianni Greenfield DO [Primary Care Provider] - 1-2 days Time of Disposition: 16:36
[2019-02-21 14:06] LABS: Basophils # (A) 0.1 k/uL (0-0.2); Basophils % (A) 1 %; Eosinophils # (A) 0.1 k/uL (0-0.7); Eosinophils % (A) 0 %; HCT 49.2 % (39.0-53.0); HGB 15.2 gm/dL (13.0-17.5); Lymphocytes # (A) 0.7 k/uL (1.0-4.8); Lymphocytes % (A) 5 %; MCH 27.8 pg (25.0-35.0); MCHC 30.9 g/dL (31.0-37.0); MCV 90.2 fL (80.0-100.0); Mean Platelet Volume 7.7; Monocytes # (A) 0.5 k/uL (0-1.0); Monocytes % (A) 4 %; Neutrophils # (A) 12.3 k/uL (1.3-7.7); Neutrophils % (A) 89 %; Platelet Count 246 k/uL (150-450); RBC 5.46 m/uL (4.30-5.90); RDW 13.7 % (11.5-15.5); WBC 13.9 k/uL (3.8-10.6)
[2019-02-21 14:19] LABS: Partial Thromboplastin Time 25.8 sec (22.0-30.0); Prothrombin Time 10.8 sec (9.0-12.0)
[2019-02-21 14:25] LABS: ALT 32 U/L (21-72); AST 25 U/L (17-59); African American GFR (CKD) >90 (>60 ml/min/1.73 sqM); Albumin 3.9 g/dL (3.5-5.0); Alcohol <10 mg/dL; Alkaline Phosphatase 142 U/L (38-126); Amylase 45 U/L (30-110); Anion Gap 10 mmol/L; Blood Urea Nitrogen 15 mg/dL (9-20); Calcium 9.2 mg/dL (8.4-10.2); Carbon Dioxide 26 mmol/L (22-30); Chloride 105 mmol/L (98-107); Glucose 183 mg/dL (74-99); Potassium 4.7 mmol/L (3.5-5.1); Sodium 141 mmol/L (137-145); Total Bilirubin 0.7 mg/dL (0.2-1.3)
[2019-02-21 14:28] LABS: Creatine Kinase 130 U/L (55-170)
[2019-02-21 14:41] LABS: Creatine Kinase MB 1.8 ng/mL (0.0-2.4); Troponin I <0.012 ng/mL (0.000-0.034)
[2019-02-21] MEDS ORDERED: MORPHINE SULFATE 4 MG/ML SYRINGE IVP STA (14:55)
--- NOTE | 2019-02-21 14:57 | CT ---
EXAMINATION TYPE: CT abdomen pelvis w con DATE OF EXAM: 02/21/2019 COMPARISON: CTA aorta October 14, 2017 HISTORY: Abdominal and low back pain after fall injury. CT DLP: 2979.4 mGycm, Automated Exposure Control for Dose Reduction was Utilized. CONTRAST: CT scan of the abdomen and pelvis is performed with oral and with IV Contrast, patient injected with 100 mL of Isovue 300. FINDINGS: Exam is suboptimal secondary to patient's large body habitus. LUNG BASES: Partial visualization of right-sided gynecomastia. Partial visualization of cardiomegaly. LIVER/GB: Visualized liver is low density consistent with fatty infiltration PANCREAS: Mild generalized fat replaced atrophy. SPLEEN: No significant abnormality is seen. ADRENALS: Thickening to both adrenal glands favoring benign lipid rich hyperplasia.. KIDNEYS: Symmetric cortical medullary uptake and excretion without hydronephrosis seen bilaterally. C entral simple appearing parapelvic cysts in both kidneys. Exophytic simple appearing cyst lower pole level right kidney measuring approximately 1.5 cm. BOWEL: Prominent diverticula throughout the colon redemonstrated is prominent involving transverse le ft and sigmoid colon. No CT evidence for acute diverticulitis.. No suspicious small or large bowel di latation. PROSTATE/SEMINAL VESICLES: No gross abnormality seen. LYMPH NODES: No greater than 1cm abdominal or pelvic lymph nodes are appreciated. OSSEOUS STRUCTURES: Large bridging osteophytes throughout the thoracolumbar spine are redemonstrated. Vertebral body heights and disc space heights are fairly well-maintained. Spinal canal is preserved. Findings suggest underlying DISH. Metallic hardware from right hip arthroplasty causes streak artifa ct limiting evaluation of pelvic structures. This is new from prior CT. There is sclerosis and narrow ing of bilateral sacroiliac joints, right greater than left redemonstrated. Multilevel facet arthropa thy is present most prominent lower lumbar levels. Subcutaneous hyperdense fluid collection could reflect hematoma axial image 80 measuring approximatel y 9 x 3 cm by 6 to 7 cm craniocaudal dimension sagittal image 92. OTHER: No significant additional abnormality is seen. IMPRESSION: There is suspected small to moderate-sized posterior acute subcutaneous hematoma centered L2 level posterior to the lumbar spine. No acute osseous fracture or posttraumatic finding within th e abdomen or pelvis.
[2019-02-21 15:08] LABS: Appearance,Urine Clear (Clear); Bilirubin,Urine Negative (Negative); Blood,Urine Negative (Negative); Color,Urine Light Yellow; Glucose,Urine (UA) Negative (Negative); Ketones,Urine Negative (Negative); Leukocyte Esterase,Urine Negative (Negative); Nitrite,Urine Negative (Negative); PH, Urine 5.5 (5.0-8.0); Protein,Urine Trace (Negative); Urobilinogen,Urine <2.0 mg/dL (<2.0)
[2019-02-21 15:18] LABS: Amphetamine Screen,Urine Not Detected (NotDetected); Barbiturate Screen,Urine Not Detected (NotDetected); Benzodiazepines Screen,Urine Not Detected (NotDetected); Cocaine Screen,Urine Not Detected (NotDetected); Methadone Screen, Urine Not Detected (NotDetected); Opiate Screen,Urine Detected (NotDetected); Phencyclidine Screen,Urine Not Detected (NotDetected); Tricyclic Antidepressant,Urine Not Detected (NotDetected); Urn Cannabinoid Scrn Detected (NotDetected)
[2019-02-21 15:19] LABS: Oxycodone Screen, Urine Not Detected (NotDetected)
--- NOTE | 2019-02-21 15:45 | XR ---
EXAMINATION TYPE: XR pelvis AP view DATE OF EXAM: 02/21/2019 CLINICAL HISTORY: Pain after fall injury. TECHNIQUE: A single portable AP view of the pelvis is obtained. COMPARISON: CT abdomen and pelvis earlier today.. FINDINGS: Exam is essentially nondiagnostic due to large body habitus and portable technique. Metalli c hardware from right hip arthroplasty is identified and is satisfactory in position. Sclerosis and n arrowing bilateral sacroiliac joints seen better on CT versus plain film. No acute pelvic fracture no denisse on recent CT. Contrast from recent CT is filling bladder in the midline of the pelvis. IMPRESSION: As above.
--- NOTE | 2019-02-21 15:46 | XR ---
EXAMINATION TYPE: XR chest 1V portable DATE OF EXAM: 02/21/2019 COMPARISON: Chest x-ray April 29, 2018. HISTORY: Pain after fall injury. TECHNIQUE: Single AP portable frontal upright view of the chest is obtained. FINDINGS: Exam suboptimal due to portable technique and patient's large body habitus. Post-CABG snyder ges with mediastinal clips and sternal wires is redemonstrated. Diminished inspiration on current benjie dy noted. There is no focal air space opacity, pleural effusion, or pneumothorax seen. The cardiac s ilhouette size remains enlarged. The osseous structures are intact. IMPRESSION: Suboptimal study. Cardiomegaly without acute pulmonary process.
[2019-02-21 17:23] VITALS: BP 148/63; PULSE 74; RESP 16; TEMP 98.4
== END 2019-02-21 17:15 | disposition home or self-care (01) ==
LOC: EC 12:42
DX: S30.0XXA Contusion of lower back and pelvis, initial encounter (principal); I10 Essential (primary) hypertension; I49.1 Atrial premature depolarization; I45.10 Unspecified right bundle-branch block; R94.31 Abnormal electrocardiogram [ECG] [EKG]; D72.829 Elevated white blood cell count, unspecified; R73.9 Hyperglycemia, unspecified; I25.10 Atherosclerotic heart disease of native coronary artery without angina pectoris; E78.5 Hyperlipidemia, unspecified; M19.90 Unspecified osteoarthritis, unspecified site; G47.33 Obstructive sleep apnea (adult) (pediatric); Z87.891 Personal history of nicotine dependence; Z79.02 Long term (current) use of antithrombotics/antiplatelets; Z79.899 Other long term (current) drug therapy; Z86.14 Personal history of Methicillin resistant Staphylococcus aureus infection; Z95.1 Presence of aortocoronary bypass graft; Z96.641 Presence of right artificial hip joint; Z95.5 Presence of coronary angioplasty implant and graft; Z99.89 Dependence on other enabling machines and devices; W10.9XXA Fall (on) (from) unspecified stairs and steps, initial encounter; Y93.01 Activity, walking, marching and hiking; Y92.89 Other specified places as the place of occurrence of the external cause
CPT/HCPCS: 36415; 93005; 86900; 86901; 80053; 82150; 82550; 82553; 83605; 83690; 84484; 85025; 85610; 85730; 86850; 81003; 80306; 72170; 71045; 74177; 99284; 96374; 96376 ×2; G0480; J2270; Q9967; 80320

== ENCOUNTER → 2023-05-05 | Outpatient (CLI) | payer MEDICARE ==
[2023-05-05 15:35] LABS: HCT 46.9 % (39.0-53.0); HGB 15.8 gm/dL (13.0-17.5); MCH 30.9 pg (25.0-35.0); MCHC 33.7 g/dL (31.0-37.0); MCV 91.6 fL (80.0-100.0); Mean Platelet Volume 8.9; Platelet Count 167 k/uL (150-450); RBC 5.12 m/uL (4.30-5.90); RDW 13.6 % (11.5-15.5); WBC 7.6 k/uL (3.8-10.6)
[2023-05-05 16:04] LABS: African American GFR (CKD) >90 (>60 ml/min/1.73 sqM); Anion Gap 10 mmol/L; Blood Urea Nitrogen 14 mg/dL (9-20); Carbon Dioxide 27 mmol/L (22-30); Chloride 106 mmol/L (98-107); Non-African American GFR(CKD) 79 (>60 ml/min/1.73 sqM); Potassium 4.5 mmol/L (3.5-5.1); Sodium 143 mmol/L (137-145)
== END | disposition home or self-care (01) ==
LOC: LABPAT 13:36
PROVIDERS: ATTEND Internal Medicine Interventional Cardiology
DX: Z01.812 Encounter for preprocedural laboratory examination (principal); I25.10 Atherosclerotic heart disease of native coronary artery without angina pectoris; R06.02 Shortness of breath
CPT/HCPCS: 80051; 82565; 84520; 85027

== ENCOUNTER 2023-05-06 08:18 | Day surgery (SDC) | payer MEDICARE ==
[~2023-05-06 08:18] MED LIST changes: -ACETAMINOPHEN TAB 500 MG TAB PO ONE; +ALPRAZolam 0.25 MG TAB PO PRN; +ALPRAZolam 0.5 MG TAB PO PRN; +ASPIRIN 325 MG TAB PO ONE; +HEPARIN SODIUM,PORCINE (1 ML) 2,500 UNIT in SODIUM CHLORIDE 0.9% 250 ML IRRIGATION PRN; +HEPARIN SODIUM,PORCINE 10,000 UNIT in SODIUM CHLORIDE 0.9% 1,000 ML IRRIGATION PRN; -MELOXICAM 7.5 MG TAB PO ONE; +NITROGLYCERIN SL TABS 0.4 MG TAB SUBLINGUAL PRN; +SODIUM CHLORIDE 0.9% 1,000 ML in EMPTY BAG 1 BAG IV SCH; -TRANEXAMIC ACID 1,000 MG in SODIUM CHLORIDE 0.9% 100 ML IVPB ONE; -ceFAZolin 3 GM in SODIUM CHLORIDE 0.9% 100 ML IVPB ONE
[2023-05-06] MEDS ORDERED: SODIUM CHLORIDE 0.9% 1,000 ML IV ONE (08:48)
[2023-05-06 09:07] VITALS: RESP 16; TEMP 97.9
[2023-05-06 09:23] LABS: Glucose,Whole Blood 128 mg/dL (70-110)
[2023-05-06] MEDS ORDERED: VERAPAMIL 2.5 MG/ML 2 ML AMP ONE (09:24)
[2023-05-06] MEDS ORDERED: LIDOCAINE 1% INJ 10MG/ML (20 ML MDV) ONE (09:26)
[2023-05-06] MEDS ORDERED: LIDOCAINE 1% INJ 10MG/ML (20 ML MDV) SQ ONE (09:43)
[2023-05-06] MEDS ORDERED: MIDAZOLAM 2 MG/2 ML VIAL IVP ONE (09:43)
[2023-05-06] MEDS ORDERED: HEPARIN SODIUM 1,000 UN/ML (10ML VL) ONE (09:58)
[2023-05-06] MEDS ORDERED: IOPAMIDOL-370 100ML BTL INJ ONE ×2 (10:00→10:28)
[2023-05-06] MEDS ORDERED: HEPARIN SODIUM 1,000 UN/ML (10ML VL) IV ONE (10:07)
[2023-05-06] MEDS ORDERED: fentaNYL (PF) 50 MCG/ML 2 ML AMP ONE (10:10)
[2023-05-06] MEDS ORDERED: fentaNYL (PF) 50 MCG/ML 2 ML AMP IVP ONE (10:12)
[2023-05-06] MEDS ORDERED: RX INFO: IV CONTRAST WAS GIVEN 1 EACH MISC MISCELLANE PRN (10:29)
[2023-05-06] MEDS ORDERED: SODIUM CHLORIDE 0.9% 1,000 ML IV SCH (10:30)
--- NOTE | 2023-05-06 10:33 | P.PCN ---
Date of Procedure: 05/06/23 Operative Findings: CARDIAC CATHETERIZATION PERFORMING PHYSICIAN: Gustavo Dunaway MD, RPVI PROCEDURE PERFORMED: 1. Selective right and left coronary angiogram 2. KAUR into LAD angiogram and SVG into diagonal angiogram and SVG to OM angiogram 3. iFR of the first obtuse marginal branch and left circumflex coronary artery 4. Ultrasound-guided access of the right common femoral artery and selective right common femoral artery injury INDICATION: Symptomatic 78-year-old gentleman with abnormal myocardial perfusion imaging str ess test COMPLICATION: None APPROACH: Right common femoral artery LEVEL OF SEDATION: Moderate with sedation in length of 43 minutes PROCEDURE DESCRIPTION: After obtaining an informed consent, the patient was brought to cardiac tag and label cutter. Local anesthesia was performed using lidocaine subcutaneously. The right common femoral artery was cannulated using Seldinger technique, the guidewire passed easily, following that we advanced a 6 [place]ian sheath dilator assembly, the wire and dilator were removed and sheath was flushed. Selective right and left coronary angiogram using a 6-Belarusian JR4 and JL catheters. The KAUR into LAD angiogram and SVG to OM angiogram and SVG to diagonal angiogram performed using the JR4 catheter. After that I did Doppler measurement of the OM1 and left circumflex with after resuming Doppler wire and cauterizing between the Doppler wire and guiding catheter which was CLS 3.5 guiding catheter I did wire OM1 and the left circumflex. Both measurements came in to be nonflow limiting. I then selective right common femoral artery angiogram was performed The procedure was completed there was no complication. SELECTIVE CORONARY ANGIOGRAM: The right coronary artery: Medium caliber vessel nondominant vessel appears to have mild disease only Left main: Has mild disease only The left circumflex: Large-caliber vessel is a dominant vessel has intermediate lesion in the midportion was nonflow limiting by Doppler measurement The left anterior descending artery: Occluded in the proximal portion Coronary bypasses angiogram The KAUR to LAD is patent Occluded SVG to diagonal Occluded SVG to M1] CONCLUSION: 1. Occluded LAD. Patent KAUR to LAD. Occluded SVG to diagonal 2. Intermediate lesion involving OM1 nonflow limiting by Doppler wire. Occluded SVG to OM1 3. Intermediate lesion involving a dominant mid left circumflex nonflow limiting by Doppler wire POSTPROCEDURE MANAGEMENT: Medical treatment
[2023-05-06 19:55] VITALS: BP 152/78; PULSE 52
== END 2023-05-06 20:05 | disposition home or self-care (01) ==
LOC: CATHCVL 08:18
PROVIDERS: ATTEND Internal Medicine Interventional Cardiology
DX: I25.810 Atherosclerosis of coronary artery bypass graft(s) without angina pectoris (principal); Z95.5 Presence of coronary angioplasty implant and graft; I10 Essential (primary) hypertension; E78.5 Hyperlipidemia, unspecified; Z82.49 Family history of ischemic heart disease and other diseases of the circulatory system; Z79.02 Long term (current) use of antithrombotics/antiplatelets; Z79.899 Other long term (current) drug therapy; Z79.82 Long term (current) use of aspirin; Z79.84 Long term (current) use of oral hypoglycemic drugs; Z87.891 Personal history of nicotine dependence
CPT/HCPCS: 93455; 93799; 76937; 99152; 99153 ×2; C1769 ×4; C1887; C1894 ×2; J2250; J2001; J3010; J1644; Q9967